=== PATIENT | female | born 1990 ===

== ENCOUNTER 2024-08-24 13:36 | Inpatient (IN) | payer OTHER, SELFPAY ==
[2024-08-24] VITALS (11 sets, daily range): BP systolic 115–136; BP diastolic 56–95; PULSE 87–118; RESP 14–28; TEMP 37.3–38.8; O2SAT 89–100; BMI 22.9
--- NOTE | ~2024-08-24 | CT_ITS ---
EXAMINATION: CT HEAD WITHOUT CONTRAST CLINICAL INFORMATION: Altered mental status. COMPARISON: None available. TECHNIQUE: Contiguous axial imaging was performed from the skull base to vertex without intravenous administration of contrast. This CT examination was performed using dose optimization techniques as appropriate, variously including the following: *Automated exposure control *Adjustment of mA and/or kV according to patient size (this includes techniques or standardized protocols for targeted exams where dose is matched to indication/reason for exam; i.e. extremities or head) *Use of iterative reconstruction technique FINDINGS: There is mild motion degradation. There is no evidence of intracranial hemorrhage or extra-axial fluid collection. There is no mass effect, or edema. No CT evidence of acute territorial infarct. Ventricles, sulci, and cisterns are normal in size and configuration for patient age. No hydrocephalus. No midline shift. Negative hyperdense MCA sign. Negative insular ribbon sign. No white matter abnormalities. Normal pituitary. Globes and orbital contents image normally. No extracranial soft tissue abnormalities. The paranasal sinuses, mastoid air cells, and tympanic cavities are normally aerated. No suspicious bony abnormalities. There are no acute fractures evident. CT/CT head/brain wo IV con IMPRESSION: Allowing for mild motion artifact, no acute intracranial abnormality. Electronically signed by: Mahad Kimble MD 08/24/2024 04:38 PM EDT
--- NOTE | ~2024-08-24 | CT_ITS ---
CLINICAL HISTORY: ?pna CT chest without contrast Comparison: None provided Findings: The heart is normal size. The visualized thyroid and mediastinum are unremarkable. There is opacity of the bilateral lower lobes, left greater than right. There are nodular densities of the right lung measuring up to 5 mm in size in the right middle lobe series 4, image 63. The visualized upper abdomen is unremarkable. No acute fractures. IMPRESSION: Atelectasis/infiltrate of the bilateral lower lobes. Nodular densities of the right lung. CT chest follow-up in 3 months as indicated to confirm resolution. This document has been electronically signed by: Janna Shepherd MD on 08/24/2024 21:19:56
--- NOTE | 2024-08-24 13:43 | ECG_ITS ---
Test Reason : OVERDOSE Blood Pressure : */* mmHG Vent. Rate : 113 BPM Atrial Rate : 113 BPM P-R Int : 140 ms QRS Dur : 82 ms QT Int : 378 ms P-R-T Axes : 46 62 43 degrees QTcB Int : 518 ms Sinus tachycardia Nonspecific ST and T wave abnormality Abnormal ECG No previous ECGs available Referred By: Caleb Ann Electronically Signed By: BOBBI WOO
--- NOTE | 2024-08-24 13:43 | ED.GENADULT ---
HPI - General Adult General Chief complaint: ETOH/Substance Use Stated complaint: ?substance use vs withdrawal, in PC Time Seen by Provider: 08/24/24 13:40 History of Present Illness ED Provider: Marissa ELI narrative: The patient is a 38-year-old female who was brought to the hospital by ambulance in an acutely agitated state. Apparently she might have stolen a car or broken into several people's yards. This led to a shilpa by police. The patient seemed acutely agitated and possibly under the influence of substances and so she was brought to the hospital with the police assisting paramedics. She arrived acutely agitated and unable to give any additional history. A police liaison officer arrived many hours later. 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 It is possible she might have stool and a client's vehicle. Related Data Allergies Allergy/AdvReac Type Severity Reaction Status Date / Time No Known Allergies Allergy Verified 08/24/24 14:07 Review of Systems Review of Systems: Yes all other systems are reviewed and are negative [facility] Social History Social History Do you have a plan to hurt others: No Plan Physical Exam ED Vital Signs: Vital Signs - 24 hr 08/24/24 14:03 08/24/24 14:21 08/24/24 14:22 Temperature 101.9 F H Pulse Rate 118 H 112 H 111 H Respiratory Rate 28 H 20 21 H Blood Pressure 117/56 L 134/66 122/69 Pulse Oximetry 95 89 L 93 Oxygen Delivery Method Room Air Room Air Nasal Cannula Oxygen Flow Rate 2 08/24/24 14:58 08/24/24 15:36 08/24/24 16:02 Temperature 99.1 F 99.3 F Pulse Rate 106 H 96 91 Respiratory Rate 18 14 14 Blood Pressure 125/67 125/82 136/95 H Pulse Oximetry 96 100 100 Oxygen Delivery Method Room Air Room Air Room Air Oxygen Flow Rate 08/24/24 18:13 Temperature 100.2 F Pulse Rate 91 Respiratory Rate 20 Blood Pressure 126/79 Pulse Oximetry 100 Oxygen Delivery Method Nasal Cannula Oxygen Flow Rate 2 BMI result Body Mass Index 22.9 Const Other: The patient was awake but profoundly agitated and restless. HENMT Other: Face was symmetrical. Airway was clear. Mucous membranes were moist. Eyes Other: Pupils were round and equal, extraocular movements intact, conjunctivae clear Neck Other: No neck swelling. The patient had full range of motion of the neck. No nuchal rigidity. Resp Effort & Inspection: normal respiratory effort Auscultation: clear to auscultation bilaterally Cardio Rate: regular rate Rhythm: regular rhythm Heart sounds: S1 normal heart sound present and S2 normal heart sound present GI Other: Abdomen is soft and nontender Skin Other: The patient was quite diaphoretic. Neuro Other: The patient was awake, agitated, and very restless. Although she seemed very restless and agitated she seemed to have some degree of an attempt to try to control her behavior and she made some effort to try to cooperate with answering questions although she was difficult to understand. Pupils were round equal, face was symmetrical, no dysarthria, tone in her extremities were hives symmetrical, no lateralizing findings. Extrem Other: No signs of trauma to the extremities. No peripheral edema. Medications Administered Discontinued Medications Generic Name Dose Route Start Last Admin Trade Name Freq PRN Reason Stop Dose Admin Sodium Chloride 1,000 mls @ 999 mls/hr 08/24/24 14:00 08/24/24 15:21 Ns IV 08/24/24 15:00 Infused .Q1H1M SHANEKA Infusion Potassium Chloride/Sodium Chloride 40 meq in 1,000 mls @ 250 mls/hr 08/24/24 15:00 08/24/24 15:21 Kcl 40 Meq In 0.9 % Sodium Chl IV 08/24/24 18:59 250 mls/hr .Q4H HSANEKA Administration Midazolam HCl 10 mg 08/24/24 13:41 08/24/24 13:45 Midazolam Hcl 5 Mg/Ml Vial IM 08/24/24 13:42 10 mg ONCE ONE Administration Olanzapine 10 mg 08/24/24 13:41 08/24/24 13:45 Olanzapine 10 Mg Vial IM 08/24/24 13:42 10 mg ONCE ONE Administration Medical Decision Making Medical Decision Making MDM Narrative: The patient is a 38-year-old female who may have a history of asthma. Other past medical history is unclear. She arrived in restraints with the paramedics and police after apparently having been involved in a car shilpa. She seemed under the influence of drugs and was very agitated. She was therefore placed in restraints and given 10 mg of IM midazolam and 10 mg of IM olanzapine for sedation. She became sedated fairly quickly and we were able to quickly remove her from restraints. She had a rectal temperature of 101.9 and she was initially tachycardic. The patient was given IV fluids. She was given some ice packs for cooling. My initial impression was that the patient was exhibiting an acute delirium likely related to drug use. I thought that her elevated temperature was probably secondary to drug use and exposure. She was very diaphoretic. She was sedated quite easily. She was given IV fluids. An EKG showed sinus tachycardia with a QT interval of 518. He has been initial labs showed a normal white count of 6.1 with a normal differential, 60% neutrophils, 29% lymphocytes. CRP minimally elevated at 1.37. Her basic metabolic panel showed a potassium of 2.9. Bicarb slightly low at 20. No anion gap at 16. Renal function normal. VBG unremarkable with a pH of 7.44, pCO2 36. CPK elevated at 1520 test negative. The patient was given potassium replacement IV. She was on monitors. Her vital signs improved significantly. Her temperature came down to 100.2. My overall impression is that the patient developed acute agitation related to drug use. Her urine tox screen is positive for cocaine, fentanyl, buprenorphine, and opioids. She was also positive for benzodiazepines but this was obtained after she had received IM midazolam. The patient was observed. Her repeat CPK 1430. Potassium improved, coming up to 2.9. During observation the patient has a temperature started to rise and went to 100.6. At that point I felt it would be wiser to cover her with antibiotics although a source of an infection is not obvious. She is not exhibiting any respiratory symptoms. I think her mental status changes are related to drug use. Her abdomen seems soft. Her urine is clean. Nevertheless we will draw blood cultures and a lactate. I will start empiric antibiotics with Zosyn and vancomycin. I discussed the case with the admitting hospitalist. We will get a chest CT to make sure she did not have an aspiration event. Otherwise she will be admitted to the hospitalist service for further monitoring. Lab Data 08/24/24 14:14 08/24/24 17:25 Labs: Lab Results 08/24/24 08/24/24 08/24/24 Range/Units 14:14 14:18 14:24 WBC 6.1 (4.8-10.8) X10*3/uL RBC 4.30 (4.20-5.50) X10*6/uL Hgb 12.3 (12.0-16.0) g/dl Hct 34.9 L (37.0-47.0) % MCV 81.2 (80.0-98.0) fL MCH 28.6 (27.0-33.0) pg MCHC 35.2 H (31.0-35.0) g/dl RDW 12.1 (11.0-16.0) % Plt Count 280 (160-400) X10*3/uL MPV 9.2 L (9.4-12.3) fL Immature Gran % (Auto) 0.3 (0.0-0.4) % Neut % (Auto) 60.5 (45-73) % Lymph % (Auto) 29.0 (20-40) % [place] % (Auto) 7.4 (2-11) % Eos % (Auto) 2.3 (0-4) % Baso % (Auto) 0.5 (0-2) % Lymph # (Auto) 1.8 (1.2-4.9) X10*3/uL [place] # (Auto) 0.5 (0.1-1.2) X10*3/uL Eos # (Auto) 0.1 (0.0-0.4) X10*3/uL Baso # (Auto) 0.0 (0.0-0.2) X10*3/uL Abs Immat Gran (auto) 0.02 (0.00-0.03) X10*3/uL Absolute Neuts (auto) 3.7 (2.0-8.3) x10*3/uL Absolute Nucleated RBC 0.000 (0.0-0.012) X10*3/uL Nucleated RBC % (auto) 0.0 (0.0-0.2) /100WBC VBG pH 7.44 H (7.32-7.43) VBG pCO2 36 mmHg VBG pO2 88 mmHg VBG HCO3 25 (22-26) mmol/L VBG O2 Saturation 96.0 % VBG Base Excess 1.7 mmol/L Sodium 142 (135-145) mmol/L Potassium 2.1 L* (3.3-5.1) mmol/L Chloride 105 (96-108) mmol/L Carbon Dioxide 23 (22-29) mmol/L Anion Gap 16 (12-20) BUN 14 (9-16) mg/dL Creatinine 0.77 (0.5-1.4) mg/dL Estim Creat Clear Calc 90.9 Estimated GFR > 60 Random Glucose 144 H (60-115) mg/dL Calcium 9.3 (8.4-10.2) mg/dL Magnesium 2.3 (1.6-2.6) mg/dL Total Bilirubin 0.7 (0.0-1.0) mg/dL Direct Bilirubin 0.3 (0.0-0.5) mg/dL AST 60 H (5-31) U/L ALT 42 H (0-31) U/L Alkaline Phosphatase 66 (39-117) U/L Total Creatine Kinase 1520 H (26-140) U/L Troponin I High Sens 3.1 (<3.5-17.0) ng/L C-Reactive Protein 1.37 H (< or = 0.50) mg/dL Total Protein 7.7 (6.5-8.0) g/dL Albumin 4.8 (3.5-5.0) g/dL Beta HCG, Quant < 2 mIU/mL Urine Color Urine Appearance Urine pH (5.0-9.0) Ur Specific [place] (1.005-1.025) Urine Protein (Neg-Trace) mg/dL Urine Glucose (UA) (Negative) mg/dL Urine Ketones (Negative) mg/dL Urine Blood (Negative) Urine Nitrite (Negative) Ur Leukocyte Esterase (Negative) Urine RBC (0-2) /HPF Urine WBC (0-5) /HPF Ur Squamous Epith Cells (0-2) /HPF Urine Bacteria (None Seen) Hyaline Casts (0-2) /LPF Urine Opiates Screen (Not Detect) Ur Buprenorphine Scrn (Not Detect) ng/mL Ur Oxycodone Screen (Not Detect) ng/mL Urine Methadone Screen (Not Detect) ng/mL Urine Fentanyl Screen (Not Detect) Ur Barbiturates Screen (Not Detect) Ur Phencyclidine Scrn (Not Detect) Ur Amphetamines Screen (Not Detect) U Benzodiazepines Scrn (Not Detect) Urine Cocaine Screen (Not Detect) U Marijuana (THC) Screen (Not Detect) Ethyl Alcohol 10 mg/dL 06/24/25 06/24/25 Range/Units 15:38 17:25 WBC (4.8-10.8) X10*3/uL RBC (4.20-5.50) X10*6/uL Hgb (12.0-16.0) g/dl Hct (37.0-47.0) % MCV (80.0-98.0) fL MCH (27.0-33.0) pg MCHC (31.0-35.0) g/dl RDW (11.0-16.0) % Plt Count (160-400) X10*3/uL MPV (9.4-12.3) fL Immature Gran % (Auto) (0.0-0.4) % Neut % (Auto) (45-73) % Lymph % (Auto) (20-40) % [place] % (Auto) (2-11) % Eos % (Auto) (0-4) % Baso % (Auto) (0-2) % Lymph # (Auto) (1.2-4.9) X10*3/uL [place] # (Auto) (0.1-1.2) X10*3/uL Eos # (Auto) (0.0-0.4) X10*3/uL Baso # (Auto) (0.0-0.2) X10*3/uL Abs Immat Gran (auto) (0.00-0.03) X10*3/uL Absolute Neuts (auto) (2.0-8.3) x10*3/uL Absolute Nucleated RBC (0.0-0.012) X10*3/uL Nucleated RBC % (auto) (0.0-0.2) /100WBC VBG pH (7.32-7.43) VBG pCO2 mmHg VBG pO2 mmHg VBG HCO3 (22-26) mmol/L VBG O2 Saturation % VBG Base Excess mmol/L Sodium 142 (135-145) mmol/L Potassium 2.9 L* D (3.3-5.1) mmol/L Chloride 109 H (96-108) mmol/L Carbon Dioxide 20 L (22-29) mmol/L Anion Gap 16 (12-20) BUN 13 (9-16) mg/dL Creatinine 0.66 (0.5-1.4) mg/dL Estim Creat Clear Calc 106.0 Estimated GFR > 60 Random Glucose 96 (60-115) mg/dL Calcium 8.4 D (8.4-10.2) mg/dL Magnesium (1.6-2.6) mg/dL Total Bilirubin (0.0-1.0) mg/dL Direct Bilirubin (0.0-0.5) mg/dL AST (5-31) U/L ALT (0-31) U/L Alkaline Phosphatase (39-117) U/L Total Creatine Kinase 1430 H (26-140) U/L Troponin I High Sens 4.7 D (<3.5-17.0) ng/L C-Reactive Protein (< or = 0.50) mg/dL Total Protein (6.5-8.0) g/dL Albumin (3.5-5.0) g/dL Beta HCG, Quant mIU/mL Urine Color Dark Yellow Urine Appearance Clear Urine pH 5.5 (5.0-9.0) Ur Specific [place] >= 1.030 H (1.005-1.025) Urine Protein 100 (2+) H (Neg-Trace) mg/dL Urine Glucose (UA) Negative (Negative) mg/dL Urine Ketones Trace (Negative) mg/dL Urine Blood Negative (Negative) Urine Nitrite Negative (Negative) Ur Leukocyte Esterase Negative (Negative) Urine RBC 0-2 (0-2) /HPF Urine WBC 0-5 (0-5) /HPF Ur Squamous Epith Cells 3-5 (0-2) /HPF Urine Bacteria None Seen (None Seen) Hyaline Casts 11-20 (0-2) /LPF Urine Opiates Screen POSITIVE H (Not Detect) Ur Buprenorphine Scrn Positive H (Not Detect) ng/mL Ur Oxycodone Screen Not Detected (Not Detect) ng/mL Urine Methadone Screen Not Detected (Not Detect) ng/mL Urine Fentanyl Screen POSITIVE H (Not Detect) Ur Barbiturates Screen Not Detected (Not Detect) Ur Phencyclidine Scrn Not Detected (Not Detect) Ur Amphetamines Screen Not Detected (Not Detect) U Benzodiazepines Scrn POSITIVE H (Not Detect) Urine Cocaine Screen POSITIVE H (Not Detect) U Marijuana (THC) Screen POSITIVE H (Not Detect) Ethyl Alcohol mg/dL Critical Care Time Critical Care Time Critical Care Time: Yes Total Critical Care Time: 35 Attestation: The patient was critically ill with a high probability of imminent or life-threatening deterioration. ?I spent greater than 30 minutes of discontinuous time evaluating the patient, delivering critical care at the bedside, discussing evaluating data with consultants. ?Critical care time does not include time spent performing separately billable procedures or teaching. ?Time spent performing critical care with 35minutes. Discharge Plan Discharge Clinical Impression: Agitation, Hypokalemia, Acute drug intoxication, Elevated temperature Patient Disposition: Admitted As Inpatient
[2024-08-24] MEDS: Midazolam HCl 5 MG/ML VIAL 10 MG IM (13:45)
[2024-08-24] MEDS: OLANZapine 10 MG VIAL IM (13:45)
--- NOTE | 2024-08-24 13:50 | PC.NURSE ---
pt presents to the ED via EMS in extremely agitated state accompanied by paramedics/PD. upon ED arrival, pt noted to be extremely disoriented, thrashing body around, agitated, uncooperative, unable to follow commands. pt noted to be extremely diaphoretic. vitals obtained - noted to be hyperthermic, tachypneic, and tachycardic. BP/SPO2 otherwise WNL. pt transferred to stretcher/placed in 4 point restraints by security for brief period of time. patient then chemically restrained per provider order. see restraint paperwork for further details. 20gIV placed in the right AC. additional 18gIV placed in the left wrist. both IV access' wrapped for securement. labs obtained/sent to lab. ekg performed by tech. plan of care ongoing.
[2024-08-24] MEDS: 0.9 % Sodium Chloride 1,000 ML 999 ML IV (14:12)
[2024-08-24 14:18] LABS: MANUAL DIFF FLAG NO
[2024-08-24 14:19] LABS: Basophils Percent Auto 0.5 % (0-2); Eosinophils Absolute Auto 0.1 X10*3/uL (0.0-0.4); Eosinophils Percent Auto 2.3 % (0-4); Hematocrit 34.9 % (37.0-47.0); Hemoglobin 12.3 g/dl (12.0-16.0); Imm Gran Abs Auto 0.02 X10*3/uL (0.00-0.03); Imm Gran Pct Auto 0.3 % (0.0-0.4); Lymphocytes Absolute Auto 1.8 X10*3/uL (1.2-4.9); Mean Corpuscular HGB Conc 35.2 g/dl (31.0-35.0); Mean Corpuscular Hemoglobin 28.6 pg (27.0-33.0); Mean Corpuscular Volume 81.2 fL (80.0-98.0); Mean Platelet Volume 9.2 fL (9.4-12.3); Monocytes Absolute Auto 0.5 X10*3/uL (0.1-1.2); Monocytes Percent Auto 7.4 % (2-11); Neutrophils Absolute Auto 3.7 x10*3/uL (2.0-8.3); Neutrophils Percent Auto 60.5 % (45-73); Platelet Count 280 X10*3/uL (160-400); Red Cell Distribution Width 12.1 % (11.0-16.0); White Blood Count 6.1 X10*3/uL (4.8-10.8)
--- NOTE | 2024-08-24 14:21 | PC.NURSE ---
pt noted to desat to 89% on RA. no apparent respiratory distress noted. no sob/wob noted. respirations even/unlabored. pt placed on 2L via NC and positioned upright to promote patent airway w/ good effect. plan of care ongoing.
[2024-08-24 14:28] LABS: VBG Base Excess 1.7 mmol/L; VBG HCO3 25 mmol/L (22-26); VBG pCO2 36 mmHg; VBG pH 7.44 (7.32-7.43); VBG pO2 88 mmHg
[2024-08-24 14:29] LABS: Venous Blood Gas Refer to POC result
[2024-08-24 14:37] LABS: Ethanol 10 mg/dL
[2024-08-24 14:38] LABS: C Reactive Protein 1.37 mg/dL (< or = 0.50)
[2024-08-24 14:43] LABS: HCG Quantitative < 2 mIU/mL
[2024-08-24 14:45] LABS: Alanine Aminotransferase 42 U/L (0-31); Albumin Level 4.8 g/dL (3.5-5.0); Alkaline Phosphatase 66 U/L (39-117); Anion Gap 16 (12-20); Aspartate Amino Transferase 60 U/L (5-31); Bilirubin Direct 0.3 mg/dL (0.0-0.5); Bilirubin Total 0.7 mg/dL (0.0-1.0); Blood Urea Nitrogen 14 mg/dL (9-16); Calcium 9.3 mg/dL (8.4-10.2); Carbon Dioxide 23 mmol/L (22-29); Chloride 105 mmol/L (96-108); Creatinine Clr Calc Pharmacy 90.9; Estimated Glomerular Filt Rate > 60; Glucose Random 144 mg/dL (60-115); Magnesium 2.3 mg/dL (1.6-2.6); Potassium 2.1 mmol/L (3.3-5.1); Sodium 142 mmol/L (135-145); Total Protein 7.7 g/dL (6.5-8.0)
--- NOTE | 2024-08-24 15:15 | PC.NURSE ---
pt noted to be hypokalemic. pt remains on the personnel monitor displaying sinus tachycardia. otherwise vss and up to date. on RA w/o difficulty. no airway compromise noted. no sob/wob noted. respirations even/unlabored. K+ IVF delivered from central supply/administered per provider order. pt remains lethargic at this time. unable to answer questions/follow commands but responsive to painful stimuli. plan of care ongoing. call whitaker placed within reach.
[2024-08-24] MEDS: KCl 40 mEq in 0.9 % Sodium Chl 40 MEQ/1,000 ML IV.SOLN 250 MEQ IV ×2 (15:21→19:56)
--- NOTE | 2024-08-24 15:40 | PC.NURSE ---
repeat rectal temp obtained/rectal probe now in place. pt no longer febrile at this time. straight catheterization performed. 200ml of clear, dark yellow, non-foul smelling urine noted immediately post output. pt tolerated well. pt otherwise remains lethargic/responsive to physical stimuli only at this time. remains on RA in no apparent distress. no sob/wob noted. call whitaker placed within reach.
[2024-08-24 15:58] LABS: Amphetamine Screen Urine Not Detected (Not Detect); Barbiturates, Urine Not Detected (Not Detect); Benzodiazepines Screen Urine POSITIVE (Not Detect); Buprenorphine Scr Positive (Not Detect); Cannabinoid Screen Urine POSITIVE (Not Detect); Cocaine Screen Urine POSITIVE (Not Detect); Fentanyl, urine POSITIVE (Not Detect); Methadone Screen, Urine Not Detected (Not Detect); Opiate Screen Urine POSITIVE (Not Detect); Oxycodone Screen Urine Not Detected (Not Detect); Phencyclidine Screen Urine Not Detected (Not Detect)
[2024-08-24 17:21] LABS: Troponin-I High Sensitivity 3.1 ng/L (<3.5-17.0)
[2024-08-24 17:51] LABS: Anion Gap 16 (12-20); Blood Urea Nitrogen 13 mg/dL (9-16); Calcium 8.4 mg/dL (8.4-10.2); Carbon Dioxide 20 mmol/L (22-29); Chloride 109 mmol/L (96-108); Estimated Glomerular Filt Rate > 60; Glucose Random 96 mg/dL (60-115); Sodium 142 mmol/L (135-145)
[2024-08-24 17:54] LABS: Troponin-I High Sensitivity 4.7 ng/L (<3.5-17.0)
[2024-08-24 17:59] LABS: Potassium 2.9 mmol/L (3.3-5.1)
[2024-08-24 18:39] LABS: Appearance Urine Clear; Color Urine Dark Yellow; Glucose Urine UA Negative (Negative); Leukocyte Esterase Urine Negative (Negative); Nitrite Urine Negative (Negative); PH 5.5 (5.0-9.0); Specific Gravity - Urine >= 1.030 (1.005-1.025); UMIC TRIGGER UA YES; Urine Blood Negative (Negative); Urine Ketones Trace mg/dL (Negative); Urine Protein 100 (2+) mg/dL (Neg-Trace)
[2024-08-24 18:59] LABS: Bacteria Urine None Seen (None Seen); RBC Urine 0-2 /HPF (0-2); WBC Urine 0-5 /HPF (0-5)
[2024-08-24] MEDS: Acetaminophen 1,000 MG/100 ML PIGGYBACK 400 MG IV (19:54)
[2024-08-24] MEDS: Piperacillin Sodium/Tazobactam 4.5 GM in 0.9 % Sodium Chloride 100 ML IV (19:57)
[2024-08-24 20:16] LABS: Lactic Acid 0.7 mmol/L (0.5-2.0)
[2024-08-24] MEDS: vancomycin HCL 1,500 MG in 0.9 % Sodium Chloride 500 ML 333.33 MG IV (20:54)
--- NOTE | 2024-08-24 21:31 | P.HPHOSP_ITS ---
History of Present Illness Date of Service: 08/24/24 Attending physician on admission: Shashank Carlin Chief Complaint: AMS Patient is a 38-year-old black female currently unable to provide any history status post sedation secondary to severe agitation and need for restraints. Patient is no longer in restraints, resting comfortably with a one-to-one constant observation in place. Patient was able to answer questions intermittently with mostly one-word answers, yes or no. Patient is too lethargic and somnolent to participate in HPI at this time. Patient is able to protect her airway and there is no evidence of hypoxia. Patient did arrive in restraints applied by [place] police Department. It was stated in documentation that patient had an all-over body rash, possible heat rash. That rash is no longer present. It is possible that patient was out in the heat today and then being chased by police where patient stated she was walking and not in a car. It is possible patient is experiencing heat exhaustion but there is also evidence of bilateral infiltrates vs atelectasis in the lower lobes on CT scan. CT of the head is negative for any acute findings. Patient's initial temp was 101.9 degrees on arrival. Temp is now hovering 100.6. Patient does feel hot to the touch. Patient has no leukocytosis but has an elevated CRP. CPK's also elevated. Lactic acid is normal. UA is negative for UTI. Patient has no obvious abdominal pain, tenderness guarding or rebounding on exam. Patient was started on vancomycin and Zosyn in the emergency department. Blood cultures were also completed. Noting high suspicion for heat exhaustion with possible atelectasis versus infiltrates on CT of the chest. Will hold on antibiotics noting that vancomycin will cover patient for the next 12 hours. If patient develops leukocytosis, hospitalist can consider continuation of antibiotics if indicated. Treatment for heat exhaustion continued. Currently patient has abrasions on both knees and scarring on both lower legs. Patient's toxicology screen was positive for opiates, buprenorphine, fentanyl, benzodiazepines, cocaine and marijuana. Patient's shook her head head no when asked if she uses IV drugs. There is a mild systolic murmur noted on exam. No indication for echocardiogram at this time. Patient is considered homeless with no previous records in [facility]'s database. Patient has no contact listed. Patient did not her head yes that she was homeless. Unable to obtain further details. Pharmacist unable to complete medication reconciliation due to patient's lethargy and somnolence. Review of Systems 2 Review of Systems: Yes Unobtainable due to mental status (Somnolent secondary to sedation for agitation) PMFSH Cognitive capacity: Somnolent secondary to sedation for agitation Patient : No (HCG <2) Pertinent family history: Unable to obtain Social History (Updated 08/24/24 @ 21:40 by Salena Escobar [facility]) Housing: Homeless Advance Directives: No Advance Directives Information Provided: No Do you have a plan to hurt others: No Plan Patient : No (HCG <2) Ebola Risk: Travel/Contact With Anyone From Affected Area/s: No Has Patient Experienced Ebola Symptoms: No Meds Allergies Allergy/AdvReac Type Severity Reaction Status Date / Time No Known Allergies Allergy Verified 08/24/24 14:07 Active Medications: Current Medications Acetaminophen (Acetaminophen 325 Mg Tablet) 650 mg PO Q6H PRN PRN Reason: Pain, Mild 1-3,fever,headache Albuterol/Ipratropium (Albuterol/Iprat 2.5/0.5mg 3 Ml Ampul.Neb) 3 ml INHALE Q4H PRN PRN Reason: Shortness of Breath/Wheezing Calcium Carbonate (Calcium Carbonate 750 Mg Tab.Chew) 750 mg PO Q4H PRN PRN Reason: Heartburn Enoxaparin Sodium (Enoxaparin Sodium 40 Mg/0.4 Ml Syringe) 40 mg SUBCUT Q24H SHANEKA Potassium Chloride/Sodium Chloride (Kcl 40 Meq In 0.9 % Sodium Chl) 40 meq in 1,000 mls @ 250 mls/hr IV .Q4H SHANEKA Stop: 08/24/24 23:14 Last Admin: 08/24/24 19:56 Dose: 250 mls/hr Lactated Ringer's (Lr) 1,000 mls @ 125 mls/hr IVCONT .Q8H SHANEKA Magnesium Hydroxide (Milk Of Magnesia 30 Ml Oral.Susp) 30 ml PO DAILY PRN PRN Reason: Constipation Melatonin (Melatonin 3 Mg Tablet) 6 mg PO BEDTIME PRN PRN Reason: Insomnia Ondansetron HCl (Ondansetron Hcl 4 Mg/2 Ml Vial) 4 mg IVPUSH Q8H PRN PRN Reason: Nausea and Vomiting Senna (Sennosides 8.6 Mg Tablet) 17.2 mg PO BEDTIME SHANEKA Sodium Chloride (0.9 % Sodium Chloride Flush 3 Ml Syringe) 3 ml IVFLUSH QSHIFT SHANEKA Physical Exam 2 Vital Signs and Narrative: Vital Signs: Last Vital Signs Temp 100.6 F H 08/24/24 21:07 Pulse 90 08/24/24 20:07 Resp 18 08/24/24 20:07 BP 130/79 08/24/24 20:07 Pulse Ox 100 08/24/24 20:07 O2 Del Method Room Air 08/24/24 20:07 O2 Flow Rate 2 08/24/24 18:13 BMI result Body Mass Index 22.9 Patient is somnolent and lethargic, responds to sternal rub and occasionally gave yes or no answers not able to stay awake long enough to complete HPI. Neuro: Unable to complete at this time EYES: Pupils constricted, sclera nonicteric ENT: hearing intact, dentition in good repair Cardiac: S1 S2 RRR, II/ systolic murmur, no JVD, no edema in Lower ext Pulmonary: lungs diminished bilateral, no adventitious sounds noted Abdominal: BS active in all 4 quadrants, no guarding, tenderness, rebounding MSK: Unable to assess strength at this time, no obvious bruising : no CVA tenderness no bladder distension Extremities: no edema in lower extremities, PT and DP pulses palpable +2 Psych: Unable to assess Skin: Abrasions both knees, old scarring in both feet with pock araiza noted, abrasions bilateral lower legs, no rash noted Results Labs 08/24/24 14:14 08/24/24 17:25 Labs: Laboratory Results - last 24 hr 08/24/24 08/24/24 08/24/24 14:14 14:18 14:24 MCV 81.2 MCH 28.6 MCHC 35.2 H RDW 12.1 Plt Count 280 MPV 9.2 L Immature Gran % (Auto) 0.3 Neut % (Auto) 60.5 Lymph % (Auto) 29.0 [place] % (Auto) 7.4 Eos % (Auto) 2.3 Baso % (Auto) 0.5 Lymph # (Auto) 1.8 [place] # (Auto) 0.5 Eos # (Auto) 0.1 Baso # (Auto) 0.0 Abs Immat Gran (auto) 0.02 Absolute Neuts (auto) 3.7 Absolute Nucleated RBC 0.000 Nucleated RBC % (auto) 0.0 VBG pH 7.44 H VBG pCO2 36 VBG pO2 88 VBG HCO3 25 VBG O2 Saturation 96.0 VBG Base Excess 1.7 Anion Gap 16 Estim Creat Clear Calc 90.9 Estimated GFR > 60 Random Glucose 144 H Lactic Acid Calcium 9.3 Magnesium 2.3 Total Bilirubin 0.7 Direct Bilirubin 0.3 AST 60 H ALT 42 H Alkaline Phosphatase 66 Total Creatine Kinase 1520 H Troponin I High Sens 3.1 C-Reactive Protein 1.37 H Total Protein 7.7 Albumin 4.8 Beta HCG, Quant < 2 Urine Color Urine Appearance Urine pH Ur Specific [place] Urine Protein Urine Glucose (UA) Urine Ketones Urine Blood Urine Nitrite Ur Leukocyte Esterase Urine RBC Urine WBC Ur Squamous Epith Cells Urine Bacteria Hyaline Casts Urine Opiates Screen Ur Buprenorphine Scrn Ur Oxycodone Screen Urine Methadone Screen Urine Fentanyl Screen Ur Barbiturates Screen Ur Phencyclidine Scrn Ur Amphetamines Screen U Benzodiazepines Scrn Urine Cocaine Screen U Marijuana (THC) Screen Ethyl Alcohol 10 08/24/24 08/24/24 08/24/24 15:38 17:25 19:52 MCV MCH MCHC RDW Plt Count MPV Immature Gran % (Auto) Neut % (Auto) Lymph % (Auto) [place] % (Auto) Eos % (Auto) Baso % (Auto) Lymph # (Auto) [place] # (Auto) Eos # (Auto) Baso # (Auto) Abs Immat Gran (auto) Absolute Neuts (auto) Absolute Nucleated RBC Nucleated RBC % (auto) VBG pH VBG pCO2 VBG pO2 VBG HCO3 VBG O2 Saturation VBG Base Excess Anion Gap 16 Estim Creat Clear Calc 106.0 Estimated GFR > 60 Random Glucose 96 Lactic Acid 0.7 Calcium 8.4 D Magnesium Total Bilirubin Direct Bilirubin AST ALT Alkaline Phosphatase Total Creatine Kinase 1430 H Troponin I High Sens 4.7 D C-Reactive Protein Total Protein Albumin Beta HCG, Quant Urine Color Dark Yellow Urine Appearance Clear Urine pH 5.5 Ur Specific [place] >= 1.030 H Urine Protein 100 (2+) H Urine Glucose (UA) Negative Urine Ketones Trace Urine Blood Negative Urine Nitrite Negative Ur Leukocyte Esterase Negative Urine RBC 0-2 Urine WBC 0-5 Ur Squamous Epith Cells 3-5 Urine Bacteria None Seen Hyaline Casts 11-20 Urine Opiates Screen POSITIVE H Ur Buprenorphine Scrn Positive H Ur Oxycodone Screen Not Detected Urine Methadone Screen Not Detected Urine Fentanyl Screen POSITIVE H Ur Barbiturates Screen Not Detected Ur Phencyclidine Scrn Not Detected Ur Amphetamines Screen Not Detected U Benzodiazepines Scrn POSITIVE H Urine Cocaine Screen POSITIVE H U Marijuana (THC) Screen POSITIVE H Ethyl Alcohol ECG Attestation: I personally reviewed and interpreted this ECG as follows: (ST prolonged QTC 5 518) Prior ECG tracings: available for review Imaging Radiologist's Impressions: Impressions Head CT 08/24/24 15:11 IMPRESSION: Allowing for mild motion artifact, no acute intracranial abnormality. Electronically signed by: Mahad Kimble MD 08/24/2024 04:38 PM EDT RP CHest CT IMPRESSION: Atelectasis/infiltrate of the bilateral lower lobes. Nodular densities of the right lung. CT chest follow-up in 3 months as indicated to confirm resolution. Assessment and Plan (1) Heat exhaustion: Qualifiers: Encounter type: initial encounter Qualified Code(s): T67.5XXA - Heat exhaustion, unspecified, initial encounter Status: Acute Plan Patient is a 38-year-old black female currently unable to provide any history status post sedation secondary to severe agitation and need for restraints. Patient no longer requiring restraints and has a one-to-one in place. Patient extremely somnolent and lethargic unable to complete HPI. Patient is able to protect her airway and there was no evidence of hypoxia at this time. No previous records found in [facility]'s database. Patient has no reliable contact listed. Patient being admitted for suspected heat exhaustion, atelectasis with toxicology screen positive for opiates, Suboxone, fentanyl, cocaine, marijuana. Heat exhaustion -Max temp on arrival 101.9. Patient very hot to the touch. Patient was chased by police today and patient did indicate she was walking at the time. -Rash seen earlier via documentation is now resolved -Temp currently a 100.6 degrees, ice packs ordered, IV fluids continue -Telemetry -Avoid tylenol -Patient currently NPO due to level of somnolence, encourage p.o. fluid intake when more awake -Monitor temp at least hourly Restraints in place upon arrival to the emergency department, initiated by [facility] for severe agitation -Patient required Zyprexa and Valium on arrival to the ED -Currently restraints are no longer in place -One-to-one observation continue -CT of the head negative for any acute findings Abrasions lower extremities -Bacitracin ordered with wound cleansing Elevated CPK -Likely secondary to heat exhaustion -IV fluids continue -Check level in the a.m. Atelectasis versus infiltrate via CT scan of the chest -Likely more atelectasis versus infiltrate -Vanco and Zosyn started in the ED, we will hold on continuation of antibiotics noting no leukocytosis, hypoxia -Hospitalist on days to continue monitoring labs and clinical presentation to decide if antibiotics should continue -UA negative -Abdominal exam negative for any significant clinical findings Positive toxicology screen for cocaine, Suboxone, fentanyl, opioids, marijuana and benzos but patient received Valium via EMS and in the ED -Unable to review patient's past drug use history and if patient is currently prescribed Suboxone -Cows ordered -Addictions consult placed Homelessness -Patient not add head yes when asked if she was homeless -Social work/case management consult placed DVT prophylaxis: Lovenox PPI prophylaxis: Protonix IV Med rec pending: Pharmacist was unable to complete due to patient's level of somnolence and lethargy, they will attempt medication reconciliation at a later time Full code status Quality Stroke Does the patient have a stroke diagnosis?: No Reason for No Anti-thrombotic by Day Two: N/A - Med Ordered VTE Prior VTE?: No VTE Risk Level:: Medical - moderate - high VTE Device Contraindication: N/A - Device Ordered VTE Drug Contraindication: N/A - Med Ordered
[2024-08-24] MEDS: Lactated Ringers 1,000 ML 125 ML IVCONT (22:50)
[2024-08-24] MEDS: Enoxaparin Sodium 40 MG/0.4 ML SYRINGE SUBCUT (23:15)
[2024-08-24] MEDS: Bacitracin Oint 14 GM TUBE 1 APPL TOPICAL (23:16)
--- NOTE | 2024-08-24 23:28 | PC.NURSE ---
Bilateral knee abrasions cleaned and bacitracin applied. Pt tolerated well.
[2024-08-25] VITALS (8 sets, daily range): BP systolic 110–129; BP diastolic 55–78; PULSE 73–91; RESP 14–16; TEMP 36.7–38; O2SAT 98–99
[2024-08-25 05:26] LABS: MANUAL DIFF FLAG NO
[2024-08-25 05:30] LABS: Basophils Percent Auto 0.3 % (0-2); Eosinophils Percent Auto 0.4 % (0-4); Hematocrit 30.5 % (37.0-47.0); Hemoglobin 10.6 g/dl (12.0-16.0); Imm Gran Abs Auto 0.02 X10*3/uL (0.00-0.03); Imm Gran Pct Auto 0.3 % (0.0-0.4); Lymphocytes Absolute Auto 2.5 X10*3/uL (1.2-4.9); Lymphocytes Percent Auto 35.2 % (20-40); Mean Corpuscular HGB Conc 34.8 g/dl (31.0-35.0); Mean Corpuscular Hemoglobin 28.9 pg (27.0-33.0); Mean Corpuscular Volume 83.1 fL (80.0-98.0); Mean Platelet Volume 9.5 fL (9.4-12.3); Monocytes Absolute Auto 0.6 X10*3/uL (0.1-1.2); Monocytes Percent Auto 8.2 % (2-11); Neutrophils Percent Auto 55.6 % (45-73); Platelet Count 258 X10*3/uL (160-400); Red Blood Count 3.67 X10*6/uL (4.20-5.50); Red Cell Distribution Width 12.6 % (11.0-16.0); White Blood Count 7.2 X10*3/uL (4.8-10.8)
[2024-08-25 05:51] LABS: Alanine Aminotransferase 28 U/L (0-31); Albumin Level 3.7 g/dL (3.5-5.0); Alkaline Phosphatase 48 U/L (39-117); Anion Gap 14 (12-20); Aspartate Amino Transferase 40 U/L (5-31); Bilirubin Total 0.7 mg/dL (0.0-1.0); Blood Urea Nitrogen 9 mg/dL (9-16); Calcium 7.9 mg/dL (8.4-10.2); Carbon Dioxide 19 mmol/L (22-29); Chloride 115 mmol/L (96-108); Creatinine Clr Calc Pharmacy 116.6; Estimated Glomerular Filt Rate > 60; Glucose Random 95 mg/dL (60-115); Potassium 3.3 mmol/L (3.3-5.1); Sodium 145 mmol/L (135-145); Total Protein 6.1 g/dL (6.5-8.0)
[2024-08-25] MEDS: Lactated Ringers 1,000 ML 125 ML IVCONT ×3 (06:04→22:06)
[2024-08-25] MEDS: Pantoprazole Sodium 40 MG/10 ML VIAL IVPUSH (06:04)
--- NOTE | 2024-08-25 08:18 | PHA.MEDREC ---
Pharmacy Consult ? Medication Reconciliation Pharmacy has completed the medication reconciliation. Patient still very sedated and will try and talk to again later in the am. Patient did say they were on fluoxetine and vistaril but I was unable to get either dose or pharmacy they fill at.
--- NOTE | 2024-08-25 13:36 | HO.PM.IMPN ---
Subjective Subjective Date of Service: 08/25/24 Interval History: Seen and evaluated this morning more alert and interactive passed swallow eval no fever this morning no other events Review of Systems Review of Systems: Yes all other systems are reviewed and are negative Physical Exam Vital Signs: Vital Signs: Last Vital Signs Temp 98.1 F 08/25/24 11:42 Pulse 79 08/25/24 11:42 Resp 16 08/25/24 11:42 BP 121/60 08/25/24 11:42 Pulse Ox 98 08/25/24 11:42 O2 Del Method Room Air 08/25/24 11:42 O2 Flow Rate 2 08/24/24 18:13 BMI result Body Mass Index 22.9 Const: Other: Constitutional : Awake, interactive, not in distress Neck : Normal inspection, Supple Cardiovascular : RRR, no JVP, no lower extremity edema Respiratory : good bilateral air entry, no crackles, wheezes or rhonchi Gastrointestinal: soft, lax, Normal bowel sounds, Non tender Skin : Warm, Dry Neurological : Alert & oriented x3, No focal deficit Objective Data Active Medications Acetaminophen (Acetaminophen 325 Mg Tablet) 650 mg PO QSHIFT [facility] Last Admin: 08/25/24 09:38 Dose: Not Given Documented By: JADEN Non-Admin Reason: Patient Asleep Albuterol/Ipratropium (Albuterol/Iprat 2.5/0.5mg 3 Ml Ampul.Neb) 3 ml INHALE Q4H PRN PRN Reason: Shortness of Breath/Wheezing Bacitracin (Bacitracin Oint 14 Gm Tube) 1 appl TOPICAL BID [facility]; Protocol Last Admin: 08/25/24 09:39 Dose: Not Given Documented By: JADEN Non-Admin Reason: given in ED, dsgs CDI Calcium Carbonate (Calcium Carbonate 750 Mg Tab.Chew) 750 mg PO Q4H PRN PRN Reason: Heartburn Enoxaparin Sodium (Enoxaparin Sodium 40 Mg/0.4 Ml Syringe) 40 mg SUBCUT Q24H [facility] Last Admin: 08/24/24 23:15 Dose: 40 mg Documented By: GREG Lactated Ringer's (Lr) 1,000 mls @ 125 mls/hr IVCONT .Q8H [facility] Last Admin: 08/25/24 06:04 Dose: 125 mls/hr Documented By: ADAMA Magnesium Hydroxide (Milk Of Magnesia 30 Ml Oral.Susp) 30 ml PO DAILY PRN PRN Reason: Constipation Melatonin (Melatonin 3 Mg Tablet) 6 mg PO BEDTIME PRN PRN Reason: Insomnia Ondansetron HCl (Ondansetron Hcl 4 Mg/2 Ml Vial) 4 mg IVPUSH Q8H PRN PRN Reason: Nausea and Vomiting Pantoprazole Sodium (Pantoprazole Sodium 40 Mg/10 Ml Vial) 40 mg IVPUSH DAILY@0630 [facility] Last Admin: 08/25/24 06:04 Dose: 40 mg Documented By: ADAMA Senna (Sennosides 8.6 Mg Tablet) 17.2 mg PO BEDTIME [facility] Sodium Chloride (0.9 % Sodium Chloride Flush 3 Ml Syringe) 3 ml IVFLUSH QSHIFT [facility] Last Admin: 08/25/24 08:05 Dose: Not Given Documented By: MARGAUX Non-Admin Reason: IV Running Labs 08/25/24 04:49 08/25/24 04:49 Labs: Laboratory Results - last 24 hr 08/24/24 08/24/24 08/24/24 14:14 14:18 14:24 MCV 81.2 MCH 28.6 MCHC 35.2 H RDW 12.1 Plt Count 280 MPV 9.2 L Immature Gran % (Auto) 0.3 Neut % (Auto) 60.5 Lymph % (Auto) 29.0 [place] % (Auto) 7.4 Eos % (Auto) 2.3 Baso % (Auto) 0.5 Lymph # (Auto) 1.8 [place] # (Auto) 0.5 Eos # (Auto) 0.1 Baso # (Auto) 0.0 Abs Immat Gran (auto) 0.02 Absolute Neuts (auto) 3.7 Absolute Nucleated RBC 0.000 Nucleated RBC % (auto) 0.0 VBG pH 7.44 H VBG pCO2 36 VBG pO2 88 VBG HCO3 25 VBG O2 Saturation 96.0 VBG Base Excess 1.7 Anion Gap 16 Estim Creat Clear Calc 90.9 Estimated GFR > 60 Random Glucose 144 H Lactic Acid Calcium 9.3 Magnesium 2.3 Total Bilirubin 0.7 Direct Bilirubin 0.3 AST 60 H ALT 42 H Alkaline Phosphatase 66 Total Creatine Kinase 1520 H Troponin I High Sens 3.1 C-Reactive Protein 1.37 H Total Protein 7.7 Albumin 4.8 Beta HCG, Quant < 2 Urine Color Urine Appearance Urine pH Ur Specific [place] Urine Protein Urine Glucose (UA) Urine Ketones Urine Blood Urine Nitrite Ur Leukocyte Esterase Urine RBC Urine WBC Ur Squamous Epith Cells Urine Bacteria Hyaline Casts Urine Opiates Screen Ur Buprenorphine Scrn Ur Oxycodone Screen Urine Methadone Screen Urine Fentanyl Screen Ur Barbiturates Screen Ur Phencyclidine Scrn Ur Amphetamines Screen U Benzodiazepines Scrn Urine Cocaine Screen U Marijuana (THC) Screen Ethyl Alcohol 10 08/24/24 08/24/24 08/24/24 15:38 17:25 19:52 MCV MCH MCHC RDW Plt Count MPV Immature Gran % (Auto) Neut % (Auto) Lymph % (Auto) [place] % (Auto) Eos % (Auto) Baso % (Auto) Lymph # (Auto) [place] # (Auto) Eos # (Auto) Baso # (Auto) Abs Immat Gran (auto) Absolute Neuts (auto) Absolute Nucleated RBC Nucleated RBC % (auto) VBG pH VBG pCO2 VBG pO2 VBG HCO3 VBG O2 Saturation VBG Base Excess Anion Gap 16 Estim Creat Clear Calc 106.0 Estimated GFR > 60 Random Glucose 96 Lactic Acid 0.7 Calcium 8.4 D Magnesium Total Bilirubin Direct Bilirubin AST ALT Alkaline Phosphatase Total Creatine Kinase 1430 H Troponin I High Sens 4.7 D C-Reactive Protein Total Protein Albumin Beta HCG, Quant Urine Color Dark Yellow Urine Appearance Clear Urine pH 5.5 Ur Specific [place] >= 1.030 H Urine Protein 100 (2+) H Urine Glucose (UA) Negative Urine Ketones Trace Urine Blood Negative Urine Nitrite Negative Ur Leukocyte Esterase Negative Urine RBC 0-2 Urine WBC 0-5 Ur Squamous Epith Cells 3-5 Urine Bacteria None Seen Hyaline Casts 11-20 Urine Opiates Screen POSITIVE H Ur Buprenorphine Scrn Positive H Ur Oxycodone Screen Not Detected Urine Methadone Screen Not Detected Urine Fentanyl Screen POSITIVE H Ur Barbiturates Screen Not Detected Ur Phencyclidine Scrn Not Detected Ur Amphetamines Screen Not Detected U Benzodiazepines Scrn POSITIVE H Urine Cocaine Screen POSITIVE H U Marijuana (THC) Screen POSITIVE H Ethyl Alcohol 08/25/24 04:49 MCV 83.1 MCH 28.9 MCHC 34.8 RDW 12.6 Plt Count 258 MPV 9.5 Immature Gran % (Auto) 0.3 Neut % (Auto) 55.6 Lymph % (Auto) 35.2 [place] % (Auto) 8.2 Eos % (Auto) 0.4 Baso % (Auto) 0.3 Lymph # (Auto) 2.5 [place] # (Auto) 0.6 Eos # (Auto) 0.0 Baso # (Auto) 0.0 Abs Immat Gran (auto) 0.02 Absolute Neuts (auto) 4.0 Absolute Nucleated RBC 0.000 Nucleated RBC % (auto) 0.0 VBG pH VBG pCO2 VBG pO2 VBG HCO3 VBG O2 Saturation VBG Base Excess Anion Gap 14 Estim Creat Clear Calc 116.6 Estimated GFR > 60 Random Glucose 95 Lactic Acid Calcium 7.9 L Magnesium Total Bilirubin 0.7 Direct Bilirubin AST 40 H ALT 28 Alkaline Phosphatase 48 Total Creatine Kinase Troponin I High Sens C-Reactive Protein Total Protein 6.1 L Albumin 3.7 Beta HCG, Quant Urine Color Urine Appearance Urine pH Ur Specific [place] Urine Protein Urine Glucose (UA) Urine Ketones Urine Blood Urine Nitrite Ur Leukocyte Esterase Urine RBC Urine WBC Ur Squamous Epith Cells Urine Bacteria Hyaline Casts Urine Opiates Screen Ur Buprenorphine Scrn Ur Oxycodone Screen Urine Methadone Screen Urine Fentanyl Screen Ur Barbiturates Screen Ur Phencyclidine Scrn Ur Amphetamines Screen U Benzodiazepines Scrn Urine Cocaine Screen U Marijuana (THC) Screen Ethyl Alcohol Assessment and Plan (1) Agitation: Status: Acute (2) Acute drug intoxication: Status: Acute (3) Hypokalemia: Status: Acute (4) Heat exhaustion: Status: Acute (5) Elevated temperature: Status: Acute Plan Patient is a 38-year-old black female currently unable to provide any history status post sedation secondary to severe agitation and need for restraints. Patient no longer requiring restraints and has a one-to-one in place. Patient extremely somnolent and lethargic unable to complete HPI. Patient is able to protect her airway and there was no evidence of hypoxia at this time. No previous records found in [facility]'s database. Patient has no reliable contact listed. Patient being admitted for suspected heat exhaustion, atelectasis with toxicology screen positive for opiates, Suboxone, fentanyl, cocaine, marijuana. Fever complicated with Acute metabolic encephalopathy Likely Heat exhaustion, less likely viral illness, meningitis? no fever overnight, no nuchal rigidity, Encephalopathy improving continue IV fluids Tylenol ICe Packs as needed passed swallow eval, start diet if start to worsen again with AMS and fever consider LP and broad coverage Abx severe agitation Restraints in place upon arrival to the emergency department, initiated by [facility], no better likely related to drug intoxication required Zyprexa and Valium on arrival to the ED restraints are no longer in place One-to-one observation continue CT of the head negative for any acute findings Abrasions lower extremities Bacitracin ordered with wound cleansing Elevated CPK Likely secondary to heat exhaustion IV fluids continue Check level in the a.m. Atelectasis versus infiltrate via CT scan of the chest Likely more atelectasis versus infiltrate Hold Abx as no clear source of infection Multidrug abuse currently prescribed Suboxone UTox positive for cocaine, Suboxone, fentanyl, opioids, marijuana and benzos Cows ordered Addictions consulted Nodular densities of the right lung. CT chest follow-up in 3 months as indicated to confirm resolution. DVT prophylaxis: Lovenox PPI prophylaxis: Protonix IV Patient will need overnight stay monitoring Quality Stroke Does the patient have a stroke diagnosis?: No Reason for No Anti-thrombotic by Day Two: N/A - Med Ordered VTE Prior VTE?: No VTE Risk Level:: Medical - moderate - high VTE Device Contraindication: N/A - Device Ordered VTE Drug Contraindication: N/A - Med Ordered
--- NOTE | 2024-08-25 13:52 | HO.ADDICTCON ---
History of Present Illness Date of Service: 08/25/2024 Chief Complaint: AMS Reason for Consult: substance use Sources of Information: chart reviewed HPI Narrative: All information obtained from chart review as patient unable to remain awake to provide any history. Attempted to meet with patient x2, early AM and later afternoon. Patient is is a 34 year old female who presented to [facility] ED in police custody, agitated and requiring IM Zyprexa to address agitation. Unclear what occurred prior to coming to ED. In ED patient noted to be tachycardic, diaphoretic and hyperthermic, suspected that this may have been related to substance use and extreme heat. At admission Labs showed elevated CPK 1520. Potassium 2.9 EKG unremarkable. UDS +fentanyl, benzos, cocaine and buprenorphine. Patient seen in room 367. She appears comfortable in bed, no restlessness or diaphoresis noted. Patient opens her eyes briefly to voice, but otherwise not participatory in interview. She begins to answer a question, but her response is unintelligible. RN reports she woke briefly and ate some food earlier. When asked about Buprenorhine in UDS and if she was still taking it she nodded no, when asked if she had the injection she nodded yes. [facility] review shows that last injection was filled 01/06/2024. She had 2 injections prior to that, in Nov and December of 2023. No other fills beyond that. It is unclear how much, how often or via what route she is using any of these substances. VSS, temp has normalized, no agitation--somnolent, CPK decreased 1430, potassium repleted Review of Systems Review of Systems Yes Unobtainable due to mental status Diagnostics Vital Signs (24Hr): Vital Signs - 24 hr 08/24/24 14:03 08/24/24 14:21 08/24/24 14:22 Temperature 101.9 F H Pulse Rate 118 H 112 H 111 H Respiratory Rate 28 H 20 21 H Blood Pressure 117/56 L 134/66 122/69 Pulse Oximetry 95 89 L 93 Oxygen Delivery Method Room Air Room Air Nasal Cannula Oxygen Flow Rate 2 08/24/24 14:58 08/24/24 15:36 08/24/24 16:02 Temperature 99.1 F 99.3 F Pulse Rate 106 H 96 91 Respiratory Rate 18 14 14 Blood Pressure 125/67 125/82 136/95 H Pulse Oximetry 96 100 100 Oxygen Delivery Method Room Air Room Air Room Air Oxygen Flow Rate 08/24/24 18:13 08/24/24 20:07 08/24/24 21:07 Temperature 100.2 F 100.8 F H 100.6 F H Pulse Rate 91 90 Respiratory Rate 20 18 Blood Pressure 126/79 130/79 Pulse Oximetry 100 100 Oxygen Delivery Method Nasal Cannula Room Air Oxygen Flow Rate 2 08/24/24 21:29 08/24/24 22:13 08/25/24 02:35 Temperature 100.6 F H 100.2 F 100.4 F Pulse Rate 87 85 Respiratory Rate 18 14 Blood Pressure 115/67 129/78 Pulse Oximetry 100 99 Oxygen Delivery Method Room Air Room Air Oxygen Flow Rate 08/25/24 04:15 08/25/24 06:12 08/25/24 09:07 Temperature 100.2 F 99.9 F 98.0 F Pulse Rate 81 84 73 Respiratory Rate 16 16 16 Blood Pressure 128/66 126/67 118/68 Pulse Oximetry 99 98 98 Oxygen Delivery Method Room Air Room Air Room Air Oxygen Flow Rate 08/25/24 11:42 Temperature 98.1 F Pulse Rate 79 Respiratory Rate 16 Blood Pressure 121/60 Pulse Oximetry 98 Oxygen Delivery Method Room Air Oxygen Flow Rate BMI result Body Mass Index 22.9 Labs 08/25/24 04:49 08/25/24 04:49 Labs: Laboratory Results - last 48 hr 08/24/24 08/24/24 08/24/24 14:14 14:18 14:24 WBC 6.1 RBC 4.30 Hgb 12.3 Hct 34.9 L MCV 81.2 MCH 28.6 MCHC 35.2 H RDW 12.1 Plt Count 280 MPV 9.2 L Immature Gran % (Auto) 0.3 Neut % (Auto) 60.5 Lymph % (Auto) 29.0 [place] % (Auto) 7.4 Eos % (Auto) 2.3 Baso % (Auto) 0.5 Lymph # (Auto) 1.8 [place] # (Auto) 0.5 Eos # (Auto) 0.1 Baso # (Auto) 0.0 Abs Immat Gran (auto) 0.02 Absolute Neuts (auto) 3.7 Absolute Nucleated RBC 0.000 Nucleated RBC % (auto) 0.0 VBG pH 7.44 H VBG pCO2 36 VBG pO2 88 VBG HCO3 25 VBG O2 Saturation 96.0 VBG Base Excess 1.7 Sodium 142 Potassium 2.1 L* Chloride 105 Carbon Dioxide 23 Anion Gap 16 BUN 14 Creatinine 0.77 Estim Creat Clear Calc 90.9 Estimated GFR > 60 Random Glucose 144 H Lactic Acid Calcium 9.3 Magnesium 2.3 Total Bilirubin 0.7 Direct Bilirubin 0.3 AST 60 H ALT 42 H Alkaline Phosphatase 66 Total Creatine Kinase 1520 H Troponin I High Sens 3.1 C-Reactive Protein 1.37 H Total Protein 7.7 Albumin 4.8 Beta HCG, Quant < 2 Urine Color Urine Appearance Urine pH Ur Specific [place] Urine Protein Urine Glucose (UA) Urine Ketones Urine Blood Urine Nitrite Ur Leukocyte Esterase Urine RBC Urine WBC Ur Squamous Epith Cells Urine Bacteria Hyaline Casts Urine Opiates Screen Ur Buprenorphine Scrn Ur Oxycodone Screen Urine Methadone Screen Urine Fentanyl Screen Ur Barbiturates Screen Ur Phencyclidine Scrn Ur Amphetamines Screen U Benzodiazepines Scrn Urine Cocaine Screen U Marijuana (THC) Screen Ethyl Alcohol 10 08/24/24 08/24/24 08/24/24 15:38 17:25 19:52 WBC RBC Hgb Hct MCV MCH MCHC RDW Plt Count MPV Immature Gran % (Auto) Neut % (Auto) Lymph % (Auto) [place] % (Auto) Eos % (Auto) Baso % (Auto) Lymph # (Auto) [place] # (Auto) Eos # (Auto) Baso # (Auto) Abs Immat Gran (auto) Absolute Neuts (auto) Absolute Nucleated RBC Nucleated RBC % (auto) VBG pH VBG pCO2 VBG pO2 VBG HCO3 VBG O2 Saturation VBG Base Excess Sodium 142 Potassium 2.9 L* D Chloride 109 H Carbon Dioxide 20 L Anion Gap 16 BUN 13 Creatinine 0.66 Estim Creat Clear Calc 106.0 Estimated GFR > 60 Random Glucose 96 Lactic Acid 0.7 Calcium 8.4 D Magnesium Total Bilirubin Direct Bilirubin AST ALT Alkaline Phosphatase Total Creatine Kinase 1430 H Troponin I High Sens 4.7 D C-Reactive Protein Total Protein Albumin Beta HCG, Quant Urine Color Dark Yellow Urine Appearance Clear Urine pH 5.5 Ur Specific [place] >= 1.030 H Urine Protein 100 (2+) H Urine Glucose (UA) Negative Urine Ketones Trace Urine Blood Negative Urine Nitrite Negative Ur Leukocyte Esterase Negative Urine RBC 0-2 Urine WBC 0-5 Ur Squamous Epith Cells 3-5 Urine Bacteria None Seen Hyaline Casts 11-20 Urine Opiates Screen POSITIVE H Ur Buprenorphine Scrn Positive H Ur Oxycodone Screen Not Detected Urine Methadone Screen Not Detected Urine Fentanyl Screen POSITIVE H Ur Barbiturates Screen Not Detected Ur Phencyclidine Scrn Not Detected Ur Amphetamines Screen Not Detected U Benzodiazepines Scrn POSITIVE H Urine Cocaine Screen POSITIVE H U Marijuana (THC) Screen POSITIVE H Ethyl Alcohol 08/25/24 04:49 WBC 7.2 RBC 3.67 L Hgb 10.6 L Hct 30.5 L MCV 83.1 MCH 28.9 MCHC 34.8 RDW 12.6 Plt Count 258 MPV 9.5 Immature Gran % (Auto) 0.3 Neut % (Auto) 55.6 Lymph % (Auto) 35.2 [place] % (Auto) 8.2 Eos % (Auto) 0.4 Baso % (Auto) 0.3 Lymph # (Auto) 2.5 [place] # (Auto) 0.6 Eos # (Auto) 0.0 Baso # (Auto) 0.0 Abs Immat Gran (auto) 0.02 Absolute Neuts (auto) 4.0 Absolute Nucleated RBC 0.000 Nucleated RBC % (auto) 0.0 VBG pH VBG pCO2 VBG pO2 VBG HCO3 VBG O2 Saturation VBG Base Excess Sodium 145 Potassium 3.3 Chloride 115 H Carbon Dioxide 19 L Anion Gap 14 BUN 9 Creatinine 0.60 Estim Creat Clear Calc 116.6 Estimated GFR > 60 Random Glucose 95 Lactic Acid Calcium 7.9 L Magnesium Total Bilirubin 0.7 Direct Bilirubin AST 40 H ALT 28 Alkaline Phosphatase 48 Total Creatine Kinase Troponin I High Sens C-Reactive Protein Total Protein 6.1 L Albumin 3.7 Beta HCG, Quant Urine Color Urine Appearance Urine pH Ur Specific [place] Urine Protein Urine Glucose (UA) Urine Ketones Urine Blood Urine Nitrite Ur Leukocyte Esterase Urine RBC Urine WBC Ur Squamous Epith Cells Urine Bacteria Hyaline Casts Urine Opiates Screen Ur Buprenorphine Scrn Ur Oxycodone Screen Urine Methadone Screen Urine Fentanyl Screen Ur Barbiturates Screen Ur Phencyclidine Scrn Ur Amphetamines Screen U Benzodiazepines Scrn Urine Cocaine Screen U Marijuana (THC) Screen Ethyl Alcohol Imaging Radiology Impressions: ITS Impressions Head CT 08/24/24 15:11 IMPRESSION: Allowing for mild motion artifact, no acute intracranial abnormality. Electronically signed by: Mahad Kimble MD 08/24/2024 04:38 PM EDT Mental Status Exam Mental Status Exam Level of Consciousness: Drowsy (somnolent) Medications Medications Current Medications Acetaminophen (Acetaminophen 325 Mg Tablet) 650 mg PO QSHIFT [facility] Last Admin: 08/25/24 09:38 Dose: Not Given Albuterol/Ipratropium (Albuterol/Iprat 2.5/0.5mg 3 Ml Ampul.Neb) 3 ml INHALE Q4H PRN PRN Reason: Shortness of Breath/Wheezing Bacitracin (Bacitracin Oint 14 Gm Tube) 1 appl TOPICAL BID [facility]; Protocol Last Admin: 08/25/24 09:39 Dose: Not Given Calcium Carbonate (Calcium Carbonate 750 Mg Tab.Chew) 750 mg PO Q4H PRN PRN Reason: Heartburn Enoxaparin Sodium (Enoxaparin Sodium 40 Mg/0.4 Ml Syringe) 40 mg SUBCUT Q24H [facility] Last Admin: 08/24/24 23:15 Dose: 40 mg Lactated Ringer's (Lr) 1,000 mls @ 125 mls/hr IVCONT .Q8H [facility] Last Admin: 08/25/24 06:04 Dose: 125 mls/hr Magnesium Hydroxide (Milk Of Magnesia 30 Ml Oral.Susp) 30 ml PO DAILY PRN PRN Reason: Constipation Melatonin (Melatonin 3 Mg Tablet) 6 mg PO BEDTIME PRN PRN Reason: Insomnia Ondansetron HCl (Ondansetron Hcl 4 Mg/2 Ml Vial) 4 mg IVPUSH Q8H PRN PRN Reason: Nausea and Vomiting Pantoprazole Sodium (Pantoprazole Sodium 40 Mg/10 Ml Vial) 40 mg IVPUSH DAILY@0630 [facility] Last Admin: 08/25/24 06:04 Dose: 40 mg Senna (Sennosides 8.6 Mg Tablet) 17.2 mg PO BEDTIME [facility] Sodium Chloride (0.9 % Sodium Chloride Flush 3 Ml Syringe) [facility] Last Admin: 08/25/24 08:05 Dose: Not Given Allergies Allergies Allergy/AdvReac Type Severity Reaction Status Date / Time No Known Allergies Allergy Verified 08/24/24 14:07 Assessment & Plan Assessment & Plan (1) Opioid use disorder: Status: Acute Code(s): F11.90 - Opioid use, unspecified, uncomplicated Assessment and Plan: based on history of MOUD (sublocade) UDS may remain +for buprenorpine up to a year after last injeciton no observed withdrawal sx, COWS ordered will attempt to meet with patient in the AM again --somnolence may be related to stimulant withdrawal Total time managing care of this patient today __35__ minutes. [facility] Social History Social History (Updated 08/24/24 @ 21:40 by TYSHAWN Guzman) Household Members: None Housing: Homeless Patient Tobacco Use Status: Tobacco use Unknown
--- NOTE | 2024-08-25 15:00 | MHC.CM.PN ---
PT VERY SLEEPY PHAMLETS LEFT WITH PT [facility] JARON HERNANDEZ TO SEE PT DC PLAN TBD
[2024-08-25 15:01] LABS: Anion Gap 10 (12-20); Blood Urea Nitrogen 7 mg/dL (9-16); Calcium 8.6 mg/dL (8.4-10.2); Carbon Dioxide 22 mmol/L (22-29); Chloride 116 mmol/L (96-108); Creatinine Clr Calc Pharmacy 119.1; Estimated Glomerular Filt Rate > 60; Glucose Random 113 mg/dL (60-115); Potassium 3.5 mmol/L (3.3-5.1); Sodium 144 mmol/L (135-145)
[2024-08-25] MEDS: Acetaminophen 325 MG TABLET 650 MG PO (16:48)
[2024-08-25] MEDS: Enoxaparin Sodium 40 MG/0.4 ML SYRINGE SUBCUT (21:25)
[2024-08-25] MEDS: Sennosides 8.6 MG TABLET 17.2 MG PO (21:25)
[2024-08-25] MEDS: Bacitracin Oint 14 GM TUBE 1 APPL TOPICAL (21:29)
[2024-08-26] MEDS: Acetaminophen 325 MG TABLET 650 MG PO ×4 (01:07→23:35)
[2024-08-26 03:51] VITALS: BP 116/61; PULSE 90; RESP 17; TEMP 36.2; O2SAT 99
[2024-08-26] MEDS: Pantoprazole Sodium 40 MG/10 ML VIAL IVPUSH (05:37)
[2024-08-26] MEDS: Lactated Ringers 1,000 ML 125 ML IVCONT ×2 (05:41→13:42)
[2024-08-26 06:01] LABS: MANUAL DIFF FLAG NO
[2024-08-26 06:21] LABS: Basophils Percent Auto 0.4 % (0-2); Eosinophils Absolute Auto 0.2 X10*3/uL (0.0-0.4); Eosinophils Percent Auto 4.4 % (0-4); Hematocrit 29.9 % (37.0-47.0); Hemoglobin 10.3 g/dl (12.0-16.0); Imm Gran Abs Auto 0.01 X10*3/uL (0.00-0.03); Imm Gran Pct Auto 0.2 % (0.0-0.4); Lymphocytes Absolute Auto 2.8 X10*3/uL (1.2-4.9); Lymphocytes Percent Auto 53.8 % (20-40); Mean Corpuscular HGB Conc 34.4 g/dl (31.0-35.0); Mean Corpuscular Hemoglobin 28.6 pg (27.0-33.0); Mean Corpuscular Volume 83.1 fL (80.0-98.0); Mean Platelet Volume 9.4 fL (9.4-12.3); Monocytes Absolute Auto 0.3 X10*3/uL (0.1-1.2); Monocytes Percent Auto 5.8 % (2-11); Neutrophils Absolute Auto 1.8 x10*3/uL (2.0-8.3); Neutrophils Percent Auto 35.4 % (45-73); Platelet Count 239 X10*3/uL (160-400); Red Cell Distribution Width 12.8 % (11.0-16.0); White Blood Count 5.2 X10*3/uL (4.8-10.8)
[2024-08-26 06:26] LABS: Anion Gap 10 (12-20); Blood Urea Nitrogen 9 mg/dL (9-16); Calcium 8.7 mg/dL (8.4-10.2); Carbon Dioxide 26 mmol/L (22-29); Chloride 109 mmol/L (96-108); Creatinine Clr Calc Pharmacy 139.7; Estimated Glomerular Filt Rate > 60; Glucose Random 87 mg/dL (60-115); Potassium 3.5 mmol/L (3.3-5.1); Sodium 141 mmol/L (135-145)
[2024-08-26 06:38] LABS: Alanine Aminotransferase 20 U/L (0-31); Alkaline Phosphatase 39 U/L (39-117); Aspartate Amino Transferase 27 U/L (5-31); Bilirubin Direct < 0.2 mg/dL (0.0-0.5); Bilirubin Total 0.2 mg/dL (0.0-1.0); Total Protein 5.1 g/dL (6.5-8.0)
[2024-08-26 07:53] VITALS: BP 116/84; PULSE 77; RESP 18; TEMP 37.1; O2SAT 98
[2024-08-26 08:00] VITALS: PULSE 77
--- NOTE | 2024-08-26 10:59 | HO.ADDICTPRO ---
Subjective Subjective Date of Service: 08/26/24 Reason For Visit: AMS Interim History: Patient seen in follow up Awake this morning. States she was at [facility] ([facility]) in [place] for about a week until she left, possibloy over the weekend. She states she had been using for about 3 days before coming to [facility]--does not recall any events leading up to ED visit. She states she had been at [facility] in [place] via [address] commitment prior to transitioning to [facility]. She reports receiving Sublocade while at [facility] and was scheduled to receive next injection this week at [facility]. She reports IN cocaine and fentanyl use. Denies any IVDU. Last use 08/24, prior to presenting to our ED. She denies any withdrawal sx, and is requesting assistance with re-entering treatment. She is from the [facility]. Per provider, she is medically cleared for discharge today. Review of Systems Constitutional: Reports as per HPI and Reports no additional constitutional complaints Mental Status Exam Mental Status Exam Level of Consciousness: Awake, Appropriate and Alert Patient Behavior: Appropriate and Cooperative Affect Description: Calm Speech Pattern: Clear Hallucinations: None Thought Process: Intact Thought Content: positive for Intact Judgement: Good Diagnostics Vital Signs (24Hr): Vital Signs - 24 hr 08/25/24 11:42 08/25/24 15:18 08/25/24 19:22 Temperature 98.1 F 98.5 F 98.4 F Pulse Rate 79 83 91 Respiratory Rate 16 16 14 Blood Pressure 121/60 117/57 L 110/55 L Pulse Oximetry 98 99 98 Oxygen Delivery Method Room Air Room Air Room Air 08/26/24 03:51 08/26/24 07:53 Temperature 97.1 F 98.7 F Pulse Rate 90 77 Respiratory Rate 17 18 Blood Pressure 116/61 116/84 Pulse Oximetry 99 98 Oxygen Delivery Method Room Air Room Air BMI result Body Mass Index 22.9 Labs 08/26/24 05:25 08/26/24 05:25 Labs: Laboratory Results - last 48 hr 08/24/24 08/24/24 08/24/24 14:14 14:18 14:24 WBC 6.1 RBC 4.30 Hgb 12.3 Hct 34.9 L MCV 81.2 MCH 28.6 MCHC 35.2 H RDW 12.1 Plt Count 280 MPV 9.2 L Immature Gran % (Auto) 0.3 Neut % (Auto) 60.5 Lymph % (Auto) 29.0 [place] % (Auto) 7.4 Eos % (Auto) 2.3 Baso % (Auto) 0.5 Lymph # (Auto) 1.8 [place] # (Auto) 0.5 Eos # (Auto) 0.1 Baso # (Auto) 0.0 Abs Immat Gran (auto) 0.02 Absolute Neuts (auto) 3.7 Absolute Nucleated RBC 0.000 Nucleated RBC % (auto) 0.0 VBG pH 7.44 H VBG pCO2 36 VBG pO2 88 VBG HCO3 25 VBG O2 Saturation 96.0 VBG Base Excess 1.7 Sodium 142 Potassium 2.1 L* Chloride 105 Carbon Dioxide 23 Anion Gap 16 BUN 14 Creatinine 0.77 Estim Creat Clear Calc 90.9 Estimated GFR > 60 Random Glucose 144 H Lactic Acid Calcium 9.3 Magnesium 2.3 Total Bilirubin 0.7 Direct Bilirubin 0.3 AST 60 H ALT 42 H Alkaline Phosphatase 66 Total Creatine Kinase 1520 H Troponin I High Sens 3.1 C-Reactive Protein 1.37 H Total Protein 7.7 Albumin 4.8 Beta HCG, Quant < 2 Urine Color Urine Appearance Urine pH Ur Specific [place] Urine Protein Urine Glucose (UA) Urine Ketones Urine Blood Urine Nitrite Ur Leukocyte Esterase Urine RBC Urine WBC Ur Squamous Epith Cells Urine Bacteria Hyaline Casts Urine Opiates Screen Ur Buprenorphine Scrn Ur Oxycodone Screen Urine Methadone Screen Urine Fentanyl Screen Ur Barbiturates Screen Ur Phencyclidine Scrn Ur Amphetamines Screen U Benzodiazepines Scrn Urine Cocaine Screen U Marijuana (THC) Screen Ethyl Alcohol 10 08/24/24 08/24/24 08/24/24 15:38 17:25 19:52 WBC RBC Hgb Hct MCV MCH MCHC RDW Plt Count MPV Immature Gran % (Auto) Neut % (Auto) Lymph % (Auto) [place] % (Auto) Eos % (Auto) Baso % (Auto) Lymph # (Auto) [place] # (Auto) Eos # (Auto) Baso # (Auto) Abs Immat Gran (auto) Absolute Neuts (auto) Absolute Nucleated RBC Nucleated RBC % (auto) VBG pH VBG pCO2 VBG pO2 VBG HCO3 VBG O2 Saturation VBG Base Excess Sodium 142 Potassium 2.9 L* D Chloride 109 H Carbon Dioxide 20 L Anion Gap 16 BUN 13 Creatinine 0.66 Estim Creat Clear Calc 106.0 Estimated GFR > 60 Random Glucose 96 Lactic Acid 0.7 Calcium 8.4 D Magnesium Total Bilirubin Direct Bilirubin AST ALT Alkaline Phosphatase Total Creatine Kinase 1430 H Troponin I High Sens 4.7 D C-Reactive Protein Total Protein Albumin Beta HCG, Quant Urine Color Dark Yellow Urine Appearance Clear Urine pH 5.5 Ur Specific [place] >= 1.030 H Urine Protein 100 (2+) H Urine Glucose (UA) Negative Urine Ketones Trace Urine Blood Negative Urine Nitrite Negative Ur Leukocyte Esterase Negative Urine RBC 0-2 Urine WBC 0-5 Ur Squamous Epith Cells 3-5 Urine Bacteria None Seen Hyaline Casts 11-20 Urine Opiates Screen POSITIVE H Ur Buprenorphine Scrn Positive H Ur Oxycodone Screen Not Detected Urine Methadone Screen Not Detected Urine Fentanyl Screen POSITIVE H Ur Barbiturates Screen Not Detected Ur Phencyclidine Scrn Not Detected Ur Amphetamines Screen Not Detected U Benzodiazepines Scrn POSITIVE H Urine Cocaine Screen POSITIVE H U Marijuana (THC) Screen POSITIVE H Ethyl Alcohol 08/25/24 08/25/24 08/26/24 04:49 14:29 05:25 WBC 7.2 5.2 RBC 3.67 L 3.60 L Hgb 10.6 L 10.3 L Hct 30.5 L 29.9 L MCV 83.1 83.1 MCH 28.9 28.6 MCHC 34.8 34.4 RDW 12.6 12.8 Plt Count 258 239 MPV 9.5 9.4 Immature Gran % (Auto) 0.3 0.2 Neut % (Auto) 55.6 35.4 L Lymph % (Auto) 35.2 53.8 H [place] % (Auto) 8.2 5.8 Eos % (Auto) 0.4 4.4 H Baso % (Auto) 0.3 0.4 Lymph # (Auto) 2.5 2.8 [place] # (Auto) 0.6 0.3 Eos # (Auto) 0.0 0.2 Baso # (Auto) 0.0 0.0 Abs Immat Gran (auto) 0.02 0.01 Absolute Neuts (auto) 4.0 1.8 L Absolute Nucleated RBC 0.000 0.000 Nucleated RBC % (auto) 0.0 0.0 VBG pH VBG pCO2 VBG pO2 VBG HCO3 VBG O2 Saturation VBG Base Excess Sodium 145 144 141 Potassium 3.3 3.5 3.5 Chloride 115 H 116 H 109 H Carbon Dioxide 19 L 22 26 Anion Gap 14 10 L 10 L BUN 9 7 L 9 Creatinine 0.60 0.61 0.52 Estim Creat Clear Calc 116.6 119.1 139.7 Estimated GFR > 60 > 60 > 60 Random Glucose 95 113 87 Lactic Acid Calcium 7.9 L 8.6 D 8.7 Magnesium Total Bilirubin 0.7 0.2 Direct Bilirubin < 0.2 AST 40 H 27 ALT 28 20 Alkaline Phosphatase 48 39 Total Creatine Kinase 375 H Troponin I High Sens C-Reactive Protein Total Protein 6.1 L 5.1 L Albumin 3.7 3.0 L Beta HCG, Quant Urine Color Urine Appearance Urine pH Ur Specific [place] Urine Protein Urine Glucose (UA) Urine Ketones Urine Blood Urine Nitrite Ur Leukocyte Esterase Urine RBC Urine WBC Ur Squamous Epith Cells Urine Bacteria Hyaline Casts Urine Opiates Screen Ur Buprenorphine Scrn Ur Oxycodone Screen Urine Methadone Screen Urine Fentanyl Screen Ur Barbiturates Screen Ur Phencyclidine Scrn Ur Amphetamines Screen U Benzodiazepines Scrn Urine Cocaine Screen U Marijuana (THC) Screen Ethyl Alcohol Imaging Radiology Impressions: ITS Impressions Head CT 08/24/24 15:11 IMPRESSION: Allowing for mild motion artifact, no acute intracranial abnormality. Electronically signed by: Mahad Kimble MD 08/24/2024 04:38 PM EDT Medications Medications Current Medications Acetaminophen (Acetaminophen 325 Mg Tablet) 650 mg PO QSHIFT [facility] Last Admin: 08/26/24 09:03 Dose: 650 mg Albuterol/Ipratropium (Albuterol/Iprat 2.5/0.5mg 3 Ml Ampul.Neb) 3 ml INHALE Q4H PRN PRN Reason: Shortness of Breath/Wheezing Bacitracin (Bacitracin Oint 14 Gm Tube) 1 appl TOPICAL BID [facility]; Protocol Last Admin: 08/25/24 21:29 Dose: 1 appl Calcium Carbonate (Calcium Carbonate 750 Mg Tab.Chew) 750 mg PO Q4H PRN PRN Reason: Heartburn Enoxaparin Sodium (Enoxaparin Sodium 40 Mg/0.4 Ml Syringe) 40 mg SUBCUT Q24H [facility] Last Admin: 08/25/24 21:25 Dose: 40 mg Lactated Ringer's (Lr) 1,000 mls @ 125 mls/hr IVCONT .Q8H [facility] Last Admin: 08/26/24 05:41 Dose: 125 mls/hr Magnesium Hydroxide (Milk Of Magnesia 30 Ml Oral.Susp) 30 ml PO DAILY PRN PRN Reason: Constipation Melatonin (Melatonin 3 Mg Tablet) 6 mg PO BEDTIME PRN PRN Reason: Insomnia Ondansetron HCl (Ondansetron Hcl 4 Mg/2 Ml Vial) 4 mg IVPUSH Q8H PRN PRN Reason: Nausea and Vomiting Pantoprazole Sodium (Pantoprazole Sodium 40 Mg/10 Ml Vial) 40 mg IVPUSH DAILY@0630 [facility] Last Admin: 08/26/24 05:37 Dose: 40 mg Senna (Sennosides 8.6 Mg Tablet) 17.2 mg PO BEDTIME [facility] Last Admin: 08/25/24 21:25 Dose: 17.2 mg Sodium Chloride (0.9 % Sodium Chloride Flush 3 Ml Syringe) 3 ml IVFLUSH QSHIFT [facility] Last Admin: 08/26/24 09:04 Dose: Not Given Allergies Allergies Allergy/AdvReac Type Severity Reaction Status Date / Time No Known Allergies Allergy Verified 08/24/24 14:07 Assessment & Plan Assessment & Plan (1) Opioid use disorder: Status: Acute Code(s): F11.90 - Opioid use, unspecified, uncomplicated Assessment and Plan: requesting referral to [facility] or [facility]--unclear which levl of care she would qualify for Buprenorphine to be continued via facility she will be discharged to--last dose administration was not verified, but reported by patient. Total time managing care of this patient today __30__ minutes.
[2024-08-26] MEDS: Bacitracin Oint 14 GM TUBE 1 APPL TOPICAL ×2 (13:41→20:19)
--- NOTE | 2024-08-26 15:27 | PM.DS ---
DS: Providers Provider Date of Service: 08/26/24 Date of admission: 08/24/24 20:46 Date of discharge: 08/26/24 Primary care physician: Unknown Physician Consults: 08/24/24 21:28 Addiction Medicine Provider Routine Consulting Provider: Addiction Covering Reason for consultation: toxicology screen pos cocaine, subox, fentanyl Has provider been notified: No 08/26/24 12:24 Consult to Wound Care Routine Reason for consultation: Abrasions to bilateral lower extremities. Attending physician on discharge: Sathya Buchanan Discharging clinician: Sayda Ryder DS: Diagnosis Discharge Diagnosis (1) Opioid use disorder: Status: Acute (2) Acute drug intoxication: Status: Acute DS: Summary Hospital Course Hospital Course: From H&P on the day of admission Patient is a 38-year-old black female currently unable to provide any history status post sedation secondary to severe agitation and need for restraints. Patient is no longer in restraints, resting comfortably with a one-to-one constant observation in place. Patient was able to answer questions intermittently with mostly one-word answers, yes or no. Patient is too lethargic and somnolent to participate in HPI at this time. Patient is able to protect her airway and there is no evidence of hypoxia. Patient did arrive in restraints applied by [place] police Department. It was stated in documentation that patient had an all-over body rash, possible heat rash. That rash is no longer present. It is possible that patient was out in the heat today and then being chased by police where patient stated she was walking and not in a car. It is possible patient is experiencing heat exhaustion but there is also evidence of bilateral infiltrates vs atelectasis in the lower lobes on CT scan. CT of the head is negative for any acute findings. Patient's initial temp was 101.9 degrees on arrival. Temp is now hovering 100.6. Patient does feel hot to the touch. Patient has no leukocytosis but has an elevated CRP. CPK's also elevated. Lactic acid is normal. UA is negative for UTI. Patient has no obvious abdominal pain, tenderness guarding or rebounding on exam. Patient was started on vancomycin and Zosyn in the emergency department. Blood cultures were also completed. Noting high suspicion for heat exhaustion with possible atelectasis versus infiltrates on CT of the chest. Will hold on antibiotics noting that vancomycin will cover patient for the next 12 hours. If patient develops leukocytosis, hospitalist can consider continuation of antibiotics if indicated. Treatment for heat exhaustion continued. Currently patient has abrasions on both knees and scarring on both lower legs. Patient's toxicology screen was positive for opiates, buprenorphine, fentanyl, benzodiazepines, cocaine and marijuana. Patient's shook her head head no when asked if she uses IV drugs. There is a mild systolic murmur noted on exam. No indication for echocardiogram at this time. Patient is considered homeless with no previous records in [facility]'s database. Patient has no contact listed. Patient did not her head yes that she was homeless. Unable to obtain further details. Pharmacist unable to complete medication reconciliation due to patient's lethargy and somnolence. Fever complicated with Acute metabolic encephalopathy Likely Heat exhaustion vs pneumonia. no fever since admission, no nuchal rigidity, Encephalopathy now resolved. Blood cultures negative. severe agitation. resolved required Zyprexa and Valium on arrival to the ED. likely r/t drug intoxication. Mild rhabdomyolysis Likely secondary to heat exhaustion, drug use. cpk trended down with IVF Atelectasis versus infiltrate via CT scan of the chest given fever on arrival will treat for pneumonia. complete po antibiotics upon discharge. Multidrug abuse UTox positive for cocaine, Suboxone, fentanyl, opioids, marijuana and benzos Addiction medicine following Nodular densities of the right lung. CT chest follow-up in 3 months as indicated to confirm resolution. patient is now medically clear for discharge. Time Attestation Discharge Coordination Time (in mins): 35 Quality: Safe Use of Opioids Does Pt have an Active Cancer Diagnosis on the Problem List?: No Quality: Stroke Does the patient have a stroke diagnosis?: No Physical Exam Vital Signs: Vital Signs: Last Vital Signs Temp 98.7 F 08/26/24 07:53 Pulse 77 08/26/24 07:53 Resp 18 08/26/24 07:53 BP 116/84 08/26/24 07:53 Pulse Ox 98 08/26/24 07:53 O2 Del Method Room Air 08/26/24 07:53 O2 Flow Rate 2 08/24/24 18:13 BMI result Body Mass Index 22.9 Const: General: cooperative, comfortable, no acute distress and alert Nutritional Appearance: average body habitus Orientation/consciousness: patient oriented x3 Resp: Effort & Inspection: normal respiratory effort, able to speak in complete sentences, no respiratory distress and no use of accessory muscles Cardio: Rate: regular rate GI: Inspection: No distended Palpation (GI): Soft to palpation and nontender Neuro: General: patient oriented x3, moves all extremities and CN's II-XI intact bilaterally Extrem: Other: left hand swelling due to IV infiltration DS: Data Data Completed and Pending Labs on day of discharge: Laboratory Results - last 24 hr 08/26/24 05:25 WBC 5.2 RBC 3.60 L Hgb 10.3 L Hct 29.9 L MCV 83.1 MCH 28.6 MCHC 34.4 RDW 12.8 Plt Count 239 MPV 9.4 Immature Gran % (Auto) 0.2 Neut % (Auto) 35.4 L Lymph % (Auto) 53.8 H [place] % (Auto) 5.8 Eos % (Auto) 4.4 H Baso % (Auto) 0.4 Lymph # (Auto) 2.8 [place] # (Auto) 0.3 Eos # (Auto) 0.2 Baso # (Auto) 0.0 Abs Immat Gran (auto) 0.01 Absolute Neuts (auto) 1.8 L Absolute Nucleated RBC 0.000 Nucleated RBC % (auto) 0.0 Sodium 141 Potassium 3.5 Chloride 109 H Carbon Dioxide 26 Anion Gap 10 L BUN 9 Creatinine 0.52 Estim Creat Clear Calc 139.7 Estimated GFR > 60 Random Glucose 87 Calcium 8.7 Total Bilirubin 0.2 Direct Bilirubin < 0.2 AST 27 ALT 20 Alkaline Phosphatase 39 Total Creatine Kinase 375 H Total Protein 5.1 L Albumin 3.0 L Preliminary micro results at discharge 08/24/24 19:52 Blood Culture - Preliminary Blood - Venous No growth after 24 hours. 08/24/24 19:52 Blood Culture - Preliminary Blood - Venous No growth after 24 hours. Discharge Plan Discharge Anticipated Discharge Date/Time: 08/27/24 13:48 Patient Disposition: Xfer Other Discharge Diagnosis: Toxic metabolic encephalopathy-resolved Mild rhabdomyolysis-resolved Possible pneumonia Referrals: Physician,Unknown J [Primary Care Provider, Medical] - 1 Week Discharge Medications: New cefuroxime axetil 500 mg Tablet 500 mg PO Q12H 4 Days Qty: 8 0RF doxycycline monohydrate 100 mg Capsule 100 mg PO Q12H 4 Days Qty: 8 0RF buprenorphine-naloxone [Suboxone] 8-2 mg film 1 film buccal BID Qty: 28 0RF Continued hydroxyzine pamoate 50 mg Capsule PO BID PRN (Reason: Anxiety) fluoxetine 20 mg Capsule PO DAILY Discharge Orders: Discharge Order (Routine); Ordered 08/27/24 Ordered By: Sayda Ryder Activity on Discharge: As tolerated Stand Alone Forms: Patient Portal Discharge page Print Language: Unknown Care Plan Goals: see below Health Concerns: Acute toxic metabolic encephalopathy-resolved Mild rhabdomyolysis-resolved Possible pneumonia Plan of Treatment: Complete course of oral antibiotics for possible pneumonia Nodular densities of the right lung seen on imaging- Recommend outpatient follow-up with PCP for repeat imaging in 3 months to confirm resolution continue suboxone as prescribed Assessment: Transfer to [facility] for further substance use treatment
--- NOTE | 2024-08-26 15:44 | MHC.CM.PN ---
PT WILL COMPLETE AN APPLICATION FOR [facility] ONCE COMPLETED, IT WILL BE EMAILED WITH CLINICALS TO [email or web address] PT IS AWARE SHE WILL LIKELY NEED TO DC TO A HALF-WAY WHILE SHE WAITS FOR A RECOVERY BED
[2024-08-26] MEDS: 0.9 % Sodium Chloride Flush 3 ML SYRINGE IVFLUSH ×2 (15:58→19:54)
--- NOTE | 2024-08-26 15:59 | P.PNIM_ITS ---
Subjective Subjective Date of Service: 08/26/24 Interval History: Seen and examined this morning Follow-up for altered mental status Patient awake, alert in no acute distress. Oriented has no specific complaints Constitutional Constitutional: Denies chills and Denies fever(s) Physical Exam 2 Vital Signs: Vital Signs: Last Vital Signs Temp 98.7 F 08/26/24 07:53 Pulse 77 08/26/24 07:53 Resp 18 08/26/24 07:53 BP 116/84 08/26/24 07:53 Pulse Ox 98 08/26/24 07:53 O2 Del Method Room Air 08/26/24 07:53 O2 Flow Rate 2 08/24/24 18:13 BMI result Body Mass Index 22.9 Const: General: cooperative, comfortable, no acute distress, alert and awake Nutritional Appearance: average body habitus Orientation/consciousness: p atient oriented x3 Resp: Effort & Inspection: normal respiratory effort, able to speak in complete sentences, no respiratory distress and no use of accessory muscles Cardio: Rate: regular rate GI: Inspection: No distended Neuro: General: patient oriented x3, moves all extremities and CN's II-XI intact bilaterally Objective Data Active Medications Acetaminophen (Acetaminophen 325 Mg Tablet) 650 mg PO QSHIFT [facility] Last Admin: 08/26/24 15:56 Dose: 650 mg Documented By: ROSA Albuterol/Ipratropium (Albuterol/Iprat 2.5/0.5mg 3 Ml Ampul.Neb) 3 ml INHALE Q4H PRN PRN Reason: Shortness of Breath/Wheezing Bacitracin (Bacitracin Oint 14 Gm Tube) 1 appl TOPICAL BID [facility]; Protocol Last Admin: 08/26/24 13:41 Dose: 1 appl Documented By: ROSA Calcium Carbonate (Calcium Carbonate 750 Mg Tab.Chew) 750 mg PO Q4H PRN PRN Reason: Heartburn Enoxaparin Sodium (Enoxaparin Sodium 40 Mg/0.4 Ml Syringe) 40 mg SUBCUT Q24H [facility] Last Admin: 08/25/24 21:25 Dose: 40 mg Documented By: CHANDLER Magnesium Hydroxide (Milk Of Magnesia 30 Ml Oral.Susp) 30 ml PO DAILY PRN PRN Reason: Constipation Melatonin (Melatonin 3 Mg Tablet) 6 mg PO BEDTIME PRN PRN Reason: Insomnia Ondansetron HCl (Ondansetron Hcl 4 Mg/2 Ml Vial) 4 mg IVPUSH Q8H PRN PRN Reason: Nausea and Vomiting Pantoprazole Sodium (Pantoprazole Sodium 40 Mg/10 Ml Vial) 40 mg IVPUSH DAILY@0630 [facility] Last Admin: 08/26/24 05:37 Dose: 40 mg Documented By: CHANDLER Senna (Sennosides 8.6 Mg Tablet) 17.2 mg PO BEDTIME [facility] Last Admin: 08/25/24 21:25 Dose: 17.2 mg Documented By: CHANDLER Sodium Chloride (0.9 % Sodium Chloride Flush 3 Ml Syringe) 3 ml IVFLUSH QSHIFT [facility] Last Admin: 08/26/24 15:58 Dose: 3 ml Documented By: ROSA Labs 08/26/24 05:25 08/26/24 05:25 Labs: Laboratory Results - last 24 hr 08/26/24 05:25 MCV 83.1 MCH 28.6 MCHC 34.4 RDW 12.8 Plt Count 239 MPV 9.4 Immature Gran % (Auto) 0.2 Neut % (Auto) 35.4 L Lymph % (Auto) 53.8 H [place] % (Auto) 5.8 Eos % (Auto) 4.4 H Baso % (Auto) 0.4 Lymph # (Auto) 2.8 [place] # (Auto) 0.3 Eos # (Auto) 0.2 Baso # (Auto) 0.0 Abs Immat Gran (auto) 0.01 Absolute Neuts (auto) 1.8 L Absolute Nucleated RBC 0.000 Nucleated RBC % (auto) 0.0 Anion Gap 10 L Estim Creat Clear Calc 139.7 Estimated GFR > 60 Random Glucose 87 Calcium 8.7 Total Bilirubin 0.2 Direct Bilirubin < 0.2 AST 27 ALT 20 Alkaline Phosphatase 39 Total Creatine Kinase 375 H Total Protein 5.1 L Albumin 3.0 L Microbiology Microbiology Results: Microbiology 08/24/24 19:52 Blood Culture - Preliminary Blood - Venous No growth after 24 hours. 08/24/24 19:52 Blood Culture - Preliminary Blood - Venous No growth after 24 hours. Assessment and Plan (1) Encephalopathy: Status: Acute Plan Patient is a 38-year-old female with history of drug use brought in to ED for agitation found to have fever, admitted for suspected heat exhaustion, atelectasis with toxicology screen positive for opiates, Suboxone, fentanyl, cocaine, marijuana. Fever complicated with Acute metabolic encephalopathy Likely Heat exhaustion, less likely viral illness or meningitis? no fever overnight, no nuchal rigidity, Encephalopathy now resolved s/p IV fluids severe agitation. resolved required Zyprexa and Valium on arrival to the ED. likely r/t drug intoxication. CT of the head negative for any acute findings Abrasions lower extremities Bacitracin ordered with wound cleansing Mild rhabdomyolysis Likely secondary to heat exhaustion, drug use cpk trended down with IVF Atelectasis versus infiltrate via CT scan of the chest given fever on arrival will treat for pneumonia blood cultures negative x 24 hours Multidrug abuse currently prescribed Suboxone UTox positive for cocaine, Suboxone, fentanyl, opioids, marijuana and benzos Cows ordered Addiction medicine following Nodular densities of the right lung. CT chest follow-up in 3 months as indicated to confirm resolution. DVT prophylaxis: Lovenox Quality Stroke Does the patient have a stroke diagnosis?: No Reason for No Anti-thrombotic by Day Two: N/A - Med Ordered VTE Prior VTE?: No VTE Risk Level:: Medical - moderate - high VTE Device Contraindication: N/A - Device Ordered VTE Drug Contraindication: N/A - Med Ordered
[2024-08-26 16:00] VITALS: BP 125/75; PULSE 81; RESP 16; TEMP 36.5; O2SAT 97
--- NOTE | 2024-08-26 16:28 | HO.WOUND ---
Wound Consult: Initial 34yr old?female admitted to [facility] on 08/24/24 20:46- See progress notes and H&P for detailed history.? Wound consult placed for abrasions to bilateral knees.? Patient agreeable to assessment and photo documentation.? patient unclear of how injury occurred - denies pain and or tenderness. small open partial thickness tissue loss no s/s of infection noted at this time. Scant serosang drainage noted on bandaid when removed. Recommendations: Right knee - Cleanse with saline moist gauze or routine cleaning. Apply small amount of vaseline to wound bed cover with bandaid. Change every 1-2 days and PRN. Re-consult wound care Nurse for wound deterioration or wound changes.
[2024-08-26] MEDS: Doxycycline Monohydrate 100 MG CAPSULE PO (16:32)
[2024-08-26] MEDS: cefuroxime axetiL 500 MG TABLET PO (16:34)
[2024-08-26 19:34] VITALS: BP 135/85; PULSE 75; RESP 18; TEMP 36.3; O2SAT 99
[2024-08-26] MEDS: Sennosides 8.6 MG TABLET 17.2 MG PO (19:54)
[2024-08-26] MEDS: traMADoL HCL 50 MG TABLET PO (20:19)
[2024-08-26] MEDS: Enoxaparin Sodium 40 MG/0.4 ML SYRINGE SUBCUT (22:11)
[2024-08-26 23:36] VITALS: BP 141/77; PULSE 77; RESP 17; TEMP 36.2; O2SAT 98
--- NOTE | 2024-08-27 03:44 | PC.NURSE ---
Pt seen on bed alert and oriented, c/o generalized body aches and pain, unrelieved wit hTylenol, Dr. Carlin was notified, Tramadol tab po given, pt verbalized relief.
[2024-08-27 03:59] VITALS: BP 120/62; PULSE 75; RESP 17; TEMP 36.8; O2SAT 99
[2024-08-27] MEDS: Doxycycline Monohydrate 100 MG CAPSULE PO (04:56)
[2024-08-27] MEDS: cefuroxime axetiL 500 MG TABLET PO (04:56)
[2024-08-27 07:47] VITALS: BP 126/72; PULSE 79; RESP 18; TEMP 36.6; O2SAT 97
[2024-08-27] MEDS: Acetaminophen 325 MG TABLET 650 MG PO (07:57)
[2024-08-27] MEDS: 0.9 % Sodium Chloride Flush 3 ML SYRINGE IVFLUSH (07:58)
[2024-08-27] MEDS: Bacitracin Oint 14 GM TUBE 1 APPL TOPICAL (07:58)
[2024-08-27 08:00] VITALS: PULSE 78
--- NOTE | 2024-08-27 10:40 | P.PNADD_ITS ---
Subjective Subjective Date of Service: 08/27/24 Reason For Visit: AMS Interim History: Patient seen in follow up Cleared for discharge. Reporting she was sure for Sublocade on 08/24--medication not on formulary here, so SL films to be ordered She reports taking 8mg BID prior to injection. Denies any withdrawal sx--c/o feeling puffy--related to IVF Review of Systems Acute medical concerns: No Review of Systems Constitutional: Reports as per HPI and Reports no additional constitutional complaints Mental Status Exam Mental Status Exam Patient Orientation: Person, Place, Time and Situation Level of Consciousness: Awake, Appropriate and Alert Affect Description: Calm and Appropriate Speech Pattern: Clear Hallucinations: None Thought Process: Intact Thought Content: positive for Intact Judgement: Good Diagnostics Vital Signs (24Hr): Vital Signs - 24 hr 08/26/24 16:00 08/26/24 19:34 08/26/24 23:36 Temperature 97.7 F 97.4 F 97.1 F Pulse Rate 81 75 77 Respiratory Rate 16 18 17 Blood Pressure 125/75 135/85 141/77 H Pulse Oximetry 97 99 98 Oxygen Delivery Method Room Air Room Air Room Air 08/27/24 03:59 08/27/24 07:47 Temperature 98.2 F 97.9 F Pulse Rate 75 79 Respiratory Rate 17 18 Blood Pressure 120/62 126/72 Pulse Oximetry 99 97 Oxygen Delivery Method Room Air Nasal Cannula Room Air BMI result Body Mass Index 22.9 Labs 08/26/24 05:25 08/26/24 05:25 Labs: Laboratory Results - last 48 hr 08/25/24 08/26/24 14:29 05:25 WBC 5.2 RBC 3.60 L Hgb 10.3 L Hct 29.9 L MCV 83.1 MCH 28.6 MCHC 34.4 RDW 12.8 Plt Count 239 MPV 9.4 Immature Gran % (Auto) 0.2 Neut % (Auto) 35.4 L Lymph % (Auto) 53.8 H [place] % (Auto) 5.8 Eos % (Auto) 4.4 H Baso % (Auto) 0.4 Lymph # (Auto) 2.8 [place] # (Auto) 0.3 Eos # (Auto) 0.2 Baso # (Auto) 0.0 Abs Immat Gran (auto) 0.01 Absolute Neuts (auto) 1.8 L Absolute Nucleated RBC 0.000 Nucleated RBC % (auto) 0.0 Sodium 144 141 Potassium 3.5 3.5 Chloride 116 H 109 H Carbon Dioxide 22 26 Anion Gap 10 L 10 L BUN 7 L 9 Creatinine 0.61 0.52 Estim Creat Clear Calc 119.1 139.7 Estimated GFR > 60 > 60 Random Glucose 113 87 Calcium 8.6 D 8.7 Total Bilirubin 0.2 Direct Bilirubin < 0.2 AST 27 ALT 20 Alkaline Phosphatase 39 Total Creatine Kinase 375 H Total Protein 5.1 L Albumin 3.0 L Imaging Radiology Impressions: ITS Impressions Head CT 08/24/24 15:11 IMPRESSION: Allowing for mild motion artifact, no acute intracranial abnormality. Electronically signed by: Mahad Kimble MD 08/24/2024 04:38 PM EDT RP Medications Medications Current Medications Acetaminophen (Acetaminophen 325 Mg Tablet) 650 mg PO QSHIFT [facility] Last Admin: 08/27/24 07:57 Dose: 650 mg Albuterol/Ipratropium (Albuterol/Iprat 2.5/0.5mg 3 Ml Ampul.Neb) 3 ml INHALE Q4H PRN PRN Reason: Shortness of Breath/Wheezing Bacitracin (Bacitracin Oint 14 Gm Tube) 1 appl TOPICAL BID [facility]; Protocol Last Admin: 08/27/24 07:58 Dose: 1 appl Calcium Carbonate (Calcium Carbonate 750 Mg Tab.Chew) 750 mg PO Q4H PRN PRN Reason: Heartburn Cefuroxime Axetil (Cefuroxime Axetil 500 Mg Tablet) 500 mg PO Q12H [facility] Last Admin: 08/27/24 04:56 Dose: 500 mg Doxycycline Monohydrate (Doxycycline Monohydrate 100 Mg Capsule) 100 mg PO Q12H [facility] Last Admin: 08/27/24 04:56 Dose: 100 mg Enoxaparin Sodium (Enoxaparin Sodium 40 Mg/0.4 Ml Syringe) 40 mg SUBCUT Q24H [facility] Last Admin: 08/26/24 22:11 Dose: 40 mg Magnesium Hydroxide (Milk Of Magnesia 30 Ml Oral.Susp) 30 ml PO DAILY PRN PRN Reason: Constipation Melatonin (Melatonin 3 Mg Tablet) 6 mg PO BEDTIME PRN PRN Reason: Insomnia Ondansetron HCl (Ondansetron Hcl 4 Mg/2 Ml Vial) 4 mg IVPUSH Q8H PRN PRN Reason: Nausea and Vomiting Senna (Sennosides 8.6 Mg Tablet) 17.2 mg PO BEDTIME [facility] Last Admin: 08/26/24 19:54 Dose: 17.2 mg Sodium Chloride (0.9 % Sodium Chloride Flush 3 Ml Syringe) 3 ml IVFLUSH QSHIFT [facility] Last Admin: 08/27/24 07:58 Dose: 3 ml Allergies Allergies Allergy/AdvReac Type Severity Reaction Status Date / Time No Known Allergies Allergy Verified 08/24/24 14:07 Assessment & Plan Assessment & Plan (1) Opioid use disorder: Status: Acute Code(s): F11.90 - Opioid use, unspecified, uncomplicated Assessment and Plan: * suboxone 8mg BID ordered, first dose this AM * medically cleared and plan for discharge today. Will send rx to pharmacy once determined Plan Total time managing care of this patient today __15__ minutes.
[2024-08-27] MEDS: Buprenorphine/Naloxone 8/2 mg FILM 1 FILM SUBLINGUAL (10:52)
[2024-08-27 12:00] VITALS: BP 131/74; PULSE 84; RESP 16; TEMP 36.9; O2SAT 98
[2024-08-27 14:25] VITALS: BP 141/82; PULSE 99; RESP 18; O2SAT 94
--- NOTE | 2024-08-27 14:43 | MHC.CM.PN ---
DP: PT HAS BEEN MEDICALLY CLEARED FOR DC TO RECOVERY HOME IN [place] SET UP BY [facility]. PT WILL TRANSPORT VIA [employer].
--- NOTE | 2024-08-27 15:30 | MHC.RECOVRN ---
Pt was accepted at [facility] for further [facility] treatment. [facility] was called and pt was transported to [facility] to receive her belongings/money with additional [employer] waiting for her outside for trasport to [facility]. [employer] canceled ride due to rider no-show. [facility] contacted t/w saying they looked at the cameras and pt went to a convenience store before jumping in a bus and fleeing the area. [facility] was made aware.
== END 2024-08-27 14:24 | disposition other institution (70) | DRG 776 ==
LOC: HO.ED 20:48 → HO.EDOVER 20:51 → HO.S3 08-25 07:30
PROVIDERS: Nurse Practitioner Family; Student in an Organized Health Care Education/Training Program; Admitting Provider Student in an Organized Health Care Education/Training Program; Emergency Provider Emergency Medicine; Visit Provider Physician Assistant Medical
DX: F19.129 Other psychoactive substance abuse with intoxication, unspecified (principal); G92.8 Other toxic encephalopathy; J18.9 Pneumonia, unspecified organism; T67.5XXA Heat exhaustion, unspecified, initial encounter; X30.XXXA Exposure to excessive natural heat, initial encounter; J98.11 Atelectasis; Z78.1 Physical restraint status; Z59.02 Unsheltered homelessness; Z79.899 Other long term (current) drug therapy
CPT/HCPCS: 36415; 70450; 71250; 80048; 80053; 80076; 80307; 81001; 82550; 82803; 83605; 83735; 84484; 84702; 85025; 86140; 87040; 93005; 99285; J0131; J1650; J2250; J2359; J2470; J2543; J3371; J3480; J7120; S9485

== ENCOUNTER → 2024-08-24 13:43 | Outpatient (BNV) | payer OTHER, SELFPAY | PROVIDERS: Admitting Provider Student in an Organized Health Care Education/Training Program; Emergency Provider Emergency Medicine; Visit Provider Internal Medicine | DX: R00.0 Tachycardia, unspecified (principal) | CPT/HCPCS: 93010 ==

== ENCOUNTER → 2024-08-24 16:01 | Outpatient (BNV) | payer SELFPAY | PROVIDERS: Emergency Provider Emergency Medicine; Visit Provider Radiology Diagnostic Radiology | DX: R91.1 Solitary pulmonary nodule (principal); R41.82 Altered mental status, unspecified | CPT/HCPCS: 70450; 71250 ==

== ENCOUNTER → 2024-08-24 20:46 | Outpatient (BNV) | payer OTHER, SELFPAY | PROVIDERS: Admitting Provider Student in an Organized Health Care Education/Training Program; Emergency Provider Emergency Medicine; Visit Provider Nurse Practitioner Family | DX: F11.90 Opioid use, unspecified, uncomplicated (principal); F19.929 Other psychoactive substance use, unspecified with intoxication, unspecified | CPT/HCPCS: 99223; 99233; 99239 ==

== ENCOUNTER → 2024-08-24 20:46 | Outpatient (BNV) | payer OTHER, SELFPAY | PROVIDERS: Admitting Provider Student in an Organized Health Care Education/Training Program; Emergency Provider Emergency Medicine; Visit Provider Nurse Practitioner Psychiatric/Mental Health | DX: F11.90 Opioid use, unspecified, uncomplicated (principal) | CPT/HCPCS: 99222; 99231 ==